=== PATIENT | male | born 1965 | race Hispanic/Latino ===

== ENCOUNTER 2018-10-28 15:57 | Inpatient (IN) | payer OTHER ==
[2018-10-28] MEDS ORDERED: HumuLIN R IV ONE (16:36)
--- NOTE | 2018-10-28 16:46 | Emergency Department Report ---
ED Neuro Deficit HPI - General Chief Complaint: Dyspnea/Respdistress Stated Complaint: DONNIE/HEADACHE Time Seen by Provider: 10/28/18 16:18 Source: patient, EMS Mode of arrival: Stretcher Limitations: No Limitations - History of Present Illness Initial Comments: 53-year-old male with a past medical history of diabetes (on insulin and pills) and previous hypertension (off meds 2 years), hypothyroidism (currently on Synthroid) presents to the hospital with complaints of stroke symptoms since last night. Patient is unsure what time since it started. Developed numbness to his bilateral upper and lower lips, numbness and weakness to right arm and leg as well as slurred speech. Symptoms have been constant and worsened today. He also has had a constant global sharp 9/10 headache since last night. Headache aggravated by light. Mild nausea without vomiting or blurred vision. He denies smoking history, drugs, or alcohol use. He is intermittently compliant with his diabetes medication because he recently lost his job and is trying to make the medication last longer. He does not take an aspirin a day. He complains of some mild intermittent wheezing and shortness of breath without a history of reactive airway disease. - Related Data Home Medications: Previous Rx's Medication Instructions Recorded Last Taken Type Albuterol Sulfate [Ventolin HFA] 2 puff IH Q4H PRN #1 hfa.aer.ad 04/01/14 U nknown Rx Azithromycin [Zithromax Z-DHARMESH] 250 mg PO DAILY #1 pkg 04/01/14 Unknown Rx Promethazine /Codeine 5 ml PO Q6H PRN #150 udc 04/01/14 Unknown Rx [Phenergan/Codeine 6.25-10 mg/5 ml] Allergies/Adverse Reactions: Allergies Allergy/AdvReac Type Severity Reaction Status Date / Time No Known Allergies Allergy Verified 04/01/14 09:04 ED Review of Systems ROS: Stated complaint: DONNIE/HEADACHE Other details as noted in HPI Comment: All other systems reviewed and negative ED Past Medical Hx - Past Medical History Previous Medical History?: Yes Hx Hypertension: Yes Hx Diabetes: Yes Hx Psychiatric Treatment: Yes (anxiety) Additional medical history: Hypothyroidism - Surgical History Past Surgical History?: No - Social History Smoking Status: Never Smoker Substance Use Type: None - Medications Home Medications: Home Medications Medication Instructions Recorded Confirmed Last Taken Type Albuterol Sulfate [Ventolin HFA] 2 puff IH Q4H PRN #1 hfa.aer.ad 04/01/14 Unknown Rx Azithromycin [Zithromax Z-DHARMESH] 250 mg PO DAILY #1 pkg 04/01/14 Unknown Rx Promethazine /Codeine 5 ml PO Q6H PRN #150 udc 04/01/14 Unknown Rx [Phenergan/Codeine 6.25-10 mg/5 ml] ED Neuro Physical Exam - General Limitations: No Limitations Suspected Stroke: Yes - NIHSS Assessment Interval: Baseline 1a. Level of Consciousness: alert/keenly responsive 1b. LOC Questions: answers both correctly 1c. LOC Commands: performs tasks correctly 2. Best Gaze: normal 3. Visual: no visual loss 4. Facial Palsy: normal symmetrical movement 5b. Motor Arm Right: drift 5a. Motor Arm Left: no drift 6a. Motor Leg Left: no drift 6b. Motor Leg Right: drift 7. Limb Ataxia: absent 8. Sensory: mild/moderate sensory loss 9. Best Language: no aphasia 10. Dysarthria: mild/moderate dysarthria 11. Extinction/Inattention: no abnormality Total Score: 4 Stroke Severity: Minor Stroke - Other Other exam information: General: No limitations, patient is alert in no acute distress Head exam: Atraumatic, normocephalic Eyes exam: Normal appearance, pupils equal reactive to light, extraocular movements intact ENT: Moist mucous membrane, normal oropharynx Neck exam: Normal inspection, full range of motion, no meningismus nontender Respiratory exam: Clear to auscultation bilateral, no wheezes, rales, crackles Cardiovascular: Normal rate and rhythm, normal heart sounds Abdomen: Soft, nondistended, and nontender, with normal bowel sounds, no rebound, or guarding Extremity: Full range of motion normal inspection no deformity Back: Normal Inspection, full range of motion, no tenderness Neurologic: Alert, oriented x3, seen in a stroke scale Psychiatric: normal affect, normal mood Skin: Warm, dry, intact ED Course Vital Signs 10/28/18 10/28/18 10/28/18 16:09 16:14 17:23 Temperature 97.8 F Pulse Rate 92 H 95 H Respiratory 17 17 13 Rate Blood Pressure 146/106 Blood Pressure 146/106 142/102 [Left] O2 Sat by Pulse 97 97 100 Oximetry - Lab Data Result diagrams: 10/28/18 16:34 06/09/19 16:34 Lab Results 10/28/18 10/28/18 10/28/18 Range/Units 16:33 16:34 16:34 WBC 9.7 (4.5-11.0) K/mm3 RBC 5.89 H (3.65-5.03) M/mm3 Hgb 14.3 (11.8-15.2) gm/dl Hct 44.3 (35.5-45.6) % MCV 75 L (84-94) fl MCH 24 L (28-32) pg MCHC 32 (32-34) % RDW 16.8 H (13.2-15.2) % Plt Count 187 (140-440) K/mm3 Lymph % (Auto) 16.5 (13.4-35.0) % [place] % (Auto) 6.4 (0.0-7.3) % Eos % (Auto) 2.2 (0.0-4.3) % Baso % (Auto) 0.8 (0.0-1.8) % Lymph # 1.6 (1.2-5.4) K/mm3 [place] # 0.6 (0.0-0.8) K/mm3 Eos # 0.2 (0.0-0.4) K/mm3 Baso # 0.1 (0.0-0.1) K/mm3 Seg Neutrophils % 74.1 H (40.0-70.0) % Seg Neutrophils # 7.2 (1.8-7.7) K/mm3 PT 15.5 H (12.2-14.9) Sec. INR 1.16 H (0.87-1.13) APTT 26.9 (24.2-36.6) Sec. Thrombin Time 16.1 (15.1-19.6) Sec. VBG pH (7.320-7.420) Sodium (137-145) mmol/L Potassium (3.6-5.0) mmol/L Chloride (98-107) mmol/L Carbon Dioxide (22-30) mmol/L Anion Gap mmol/L BUN (9-20) mg/dL Creatinine (0.8-1.5) mg/dL Estimated GFR ml/min BUN/Creatinine Ratio % Glucose (75-100) mg/dL POC Glucose 309 H (70-105) Calcium (8.4-10.2) mg/dL Total Creatine Kinase (55-170) units/L CK-MB (CK-2) (0.0-4.0) ng/mL CK-MB (CK-2) Rel Index (0-4) Troponin T (0.00-0.029) ng/mL TSH (0.270-4.200) mlU/mL Free T4 (0.76-1.46) ng/dL Urine Color (Yellow) Urine Turbidity (Clear) Urine pH (5.0-7.0) Ur Specific [place] (1.003-1.030) Urine Protein (Negative) mg/dL Urine Glucose (UA) (Negative) mg/dL Urine Ketones (Negative) mg/dL Urine Blood (Negative) Urine Nitrite (Negative) Urine Bilirubin (Negative) Urine Urobilinogen (<2.0) mg/dL Ur Leukocyte Esterase (Negative) Urine WBC (Auto) (0.0-6.0) /HPF Urine RBC (Auto) (0.0-6.0) /HPF U Epithel Cells (Auto) (0-13.0) /HPF Urine Mucus /HPF Urine Opiates Screen Urine Methadone Screen Ur Barbiturates Screen Ur Phencyclidine Scrn Ur Amphetamines Screen U Benzodiazepines Scrn Urine Cocaine Screen U Marijuana (THC) Screen Drugs of Abuse Note Plasma/Serum Alcohol (0-0.07) % 10/28/18 10/28/18 10/28/18 Range/Units 16:34 16:34 16:34 WBC (4.5-11.0) K/mm3 RBC (3.65-5.03) M/mm3 Hgb (11.8-15.2) gm/dl Hct (35.5-45.6) % MCV (84-94) fl MCH (28-32) pg MCHC (32-34) % RDW (13.2-15.2) % Plt Count (140-440) K/mm3 Lymph % (Auto) (13.4-35.0) % [place] % (Auto) (0.0-7.3) % Eos % (Auto) (0.0-4.3) % Baso % (Auto) (0.0-1.8) % Lymph # (1.2-5.4) K/mm3 [place] # (0.0-0.8) K/mm3 Eos # (0.0-0.4) K/mm3 Baso # (0.0-0.1) K/mm3 Seg Neutrophils % (40.0-70.0) % Seg Neutrophils # (1.8-7.7) K/mm3 PT (12.2-14.9) Sec. INR (0.87-1.13) APTT (24.2-36.6) Sec. Thrombin Time (15.1-19.6) Sec. VBG pH 7.339 (7.320-7.420) Sodium (137-145) mmol/L Potassium (3.6-5.0) mmol/L Chloride (98-107) mmol/L Carbon Dioxide (22-30) mmol/L Anion Gap mmol/L BUN (9-20) mg/dL Creatinine (0.8-1.5) mg/dL Estimated GFR ml/min BUN/Creatinine Ratio % Glucose (75-100) mg/dL POC Glucose (70-105) Calcium (8.4-10.2) mg/dL Total Creatine Kinase 225 H (55-170) units/L CK-MB (CK-2) 9.0 H (0.0-4.0) ng/mL CK-MB (CK-2) Rel Index 4.0 (0-4) Troponin T < 0.010 (0.00-0.029) ng/mL TSH (0.270-4.200) mlU/mL Free T4 (0.76-1.46) ng/dL Urine Color (Yellow) Urine Turbidity (Clear) Urine pH (5.0-7.0) Ur Specific [place] (1.003-1.030) Urine Protein (Negative) mg/dL Urine Glucose (UA) (Negative) mg/dL Urine Ketones (Negative) mg/dL Urine Blood (Negative) Urine Nitrite (Negative) Urine Bilirubin (Negative) Urine Urobilinogen (<2.0) mg/dL Ur Leukocyte Esterase (Negative) Urine WBC (Auto) (0.0-6.0) /HPF Urine RBC (Auto) (0.0-6.0) /HPF U Epithel Cells (Auto) (0-13.0) /HPF Urine Mucus /HPF Urine Opiates Screen Urine Methadone Screen Ur Barbiturates Screen Ur Phencyclidine Scrn Ur Amphetamines Screen U Benzodiazepines Scrn Urine Cocaine Screen U Marijuana (THC) Screen Drugs of Abuse Note Plasma/Serum Alcohol < 0.01 (0-0.07) % 10/28/18 10/28/18 10/28/18 Range/Units 16:34 16:43 18:20 WBC (4.5-11.0) K/mm3 RBC (3.65-5.03) M/mm3 Hgb (11.8-15.2) gm/dl Hct (35.5-45.6) % MCV (84-94) fl MCH (28-32) pg MCHC (32-34) % RDW (13.2-15.2) % Plt Count (140-440) K/mm3 Lymph % (Auto) (13.4-35.0) % [place] % (Auto) (0.0-7.3) % Eos % (Auto) (0.0-4.3) % Baso % (Auto) (0.0-1.8) % Lymph # (1.2-5.4) K/mm3 [place] # (0.0-0.8) K/mm3 Eos # (0.0-0.4) K/mm3 Baso # (0.0-0.1) K/mm3 Seg Neutrophils % (40.0-70.0) % Seg Neutrophils # (1.8-7.7) K/mm3 PT (12.2-14.9) Sec. INR (0.87-1.13) APTT (24.2-36.6) Sec. Thrombin Time (15.1-19.6) Sec. VBG pH (7.320-7.420) Sodium 130 L (137-145) mmol/L Potassium 4.6 (3.6-5.0) mmol/L Chloride 94.2 L (98-107) mmol/L Carbon Dioxide 21 L (22-30) mmol/L Anion Gap 19 mmol/L BUN 20 (9-20) mg/dL Creatinine 1.3 (0.8-1.5) mg/dL Estimated GFR 58 ml/min BUN/Creatinine Ratio 15 % Glucose 244 H (75-100) mg/dL POC Glucose (70-105) Calcium 8.1 L (8.4-10.2) mg/dL Total Creatine Kinase (55-170) units/L CK-MB (CK-2) (0.0-4.0) ng/mL CK-MB (CK-2) Rel Index (0-4) Troponin T (0.00-0.029) ng/mL TSH 21.710 H (0.270-4.200) mlU/mL Free T4 0.86 (0.76-1.46) ng/dL Urine Color Yellow (Yellow) Urine Turbidity Clear (Clear) Urine pH 6.0 (5.0-7.0) Ur Specific [place] 1.037 H (1.003-1.030) Urine Protein >500 (Negative) mg/dL Urine Glucose (UA) >=500 (Negative) mg/dL Urine Ketones Neg (Negative) mg/dL Urine Blood Sm (Negative) Urine Nitrite Neg (Negative) Urine Bilirubin Neg (Negative) Urine Urobilinogen < 2.0 (<2.0) mg/dL Ur Leukocyte Esterase Neg (Negative) Urine WBC (Auto) 1.0 (0.0-6.0) /HPF Urine RBC (Auto) 1.0 (0.0-6.0) /HPF U Epithel Cells (Auto) 1.0 (0-13.0) /HPF Urine Mucus Few /HPF Urine Opiates Screen Urine Methadone Screen Ur Barbiturates Screen Ur Phencyclidine Scrn Ur Amphetamines Screen U Benzodiazepines Scrn Urine Cocaine Screen U Marijuana (THC) Screen Drugs of Abuse Note Plasma/Serum Alcohol (0-0.07) % 10/28/18 Range/Units 18:20 WBC (4.5-11.0) K/mm3 RBC (3.65-5.03) M/mm3 Hgb (11.8-15.2) gm/dl Hct (35.5-45.6) % MCV (84-94) fl MCH (28-32) pg MCHC (32-34) % RDW (13.2-15.2) % Plt Count (140-440) K/mm3 Lymph % (Auto) (13.4-35.0) % [place] % (Auto) (0.0-7.3) % Eos % (Auto) (0.0-4.3) % Baso % (Auto) (0.0-1.8) % Lymph # (1.2-5.4) K/mm3 [place] # (0.0-0.8) K/mm3 Eos # (0.0-0.4) K/mm3 Baso # (0.0-0.1) K/mm3 Seg Neutrophils % (40.0-70.0) % Seg Neutrophils # (1.8-7.7) K/mm3 PT (12.2-14.9) Sec. INR (0.87-1.13) APTT (24.2-36.6) Sec. Thrombin Time (15.1-19.6) Sec. VBG pH (7.320-7.420) Sodium (137-145) mmol/L Potassium (3.6-5.0) mmol/L Chloride (98-107) mmol/L Carbon Dioxide (22-30) mmol/L Anion Gap mmol/L BUN (9-20) mg/dL Creatinine (0.8-1.5) mg/dL Estimated GFR ml/min BUN/Creatinine Ratio % Glucose (75-100) mg/dL POC Glucose (70-105) Calcium (8.4-10.2) mg/dL Total Creatine Kinase (55-170) units/L CK-MB (CK-2) (0.0-4.0) ng/mL CK-MB (CK-2) Rel Index (0-4) Troponin T (0.00-0.029) ng/mL TSH (0.270-4.200) mlU/mL Free T4 (0.76-1.46) ng/dL Urine Color (Yellow) Urine Turbidity (Clear) Urine pH (5.0-7.0) Ur Specific [place] (1.003-1.030) Urine Protein (Negative) mg/dL Urine Glucose (UA) (Negative) mg/dL Urine Ketones (Negative) mg/dL Urine Blood (Negative) Urine Nitrite (Negative) Urine Bilirubin (Negative) Urine Urobilinogen (<2.0) mg/dL Ur Leukocyte Esterase (Negative) Urine WBC (Auto) (0.0-6.0) /HPF Urine RBC (Auto) (0.0-6.0) /HPF U Epithel Cells (Auto) (0-13.0) /HPF Urine Mucus /HPF Urine Opiates Screen Presumptive negative Urine Methadone Screen Presumptive negative Ur Barbiturates Screen Presumptive negative Ur Phencyclidine Scrn Presumptive negative Ur Amphetamines Screen Presumptive negative U Benzodiazepines Scrn Presumptive negative Urine Cocaine Screen Presumptive negative U Marijuana (THC) Screen Presumptive negative Drugs of Abuse Note Disclamer Plasma/Serum Alcohol (0-0.07) % - EKG Data -: EKG Interpreted by Ut EKG shows normal: sinus rhythm, axis (qrs 32), QRS complexes (qrsd 98), ST-T waves (no stemi) Rate: normal (92) - Radiology Data Radiology results: report reviewed EXAM: XR CHEST 1V AP HISTORY: sob TECHNIQUE: AP chest x-ray dated October 28, 2018 at 4:39 PM. COMPARISON: None available. FINDINGS: There is a shallow inspiratory effort with resultant mild prominence of the bronchopulmonary markings and widening of the cardiac silhouette; while the findings may represent artifactual change from shallow inspiratory effort, minimal noncardiogenic (or cardiogenic) pulmonary congestion, bronchitis, and early bronchopneumonia cannot be excluded in the appropriate clinical setting. Clinical correlation is advised. No focal consolidative lung infiltrate, pleural effusion, or pneumothorax is seen. The heart size and mediastinum are within normal limits. The visualized bony structures are within normal limits. IMPRESSION: 1. Shallow inspiratory effort with resultant mild prominence of the perihilar bronchopulmonary markings and widening of the cardiac silhouette; DDX includes artifactual change from shallow i nspiratory effort, minimal noncardiogenic (or cardiogenic) pulmonary congestion, bronchitis, and early bronchopneumonia in the appropriate clinical setting. Recommend clinical correlation and appropriate follow evaluation as clinically warranted. 2. No focal consolidative lung infiltrate, pleural effusion, or pneumothorax seen. PROCEDURE: CTA of the head and neck TECHNIQUE: CTA of the head and neck obtained with intravenous contrast. Noncontrast head CT also obtained. HISTORY: right sided weakness/numbness, slurred speech COMPARISONS: None FINDINGS: No intracranial hemorrhage or extra-axial fluid collection visualized. No CT evidence for acute cortical infarct. No hydrocephalus visualized. No midline shift visualized. Paranasal sinuses and mastoid air cells are well aerated. Calvarium is intact. The bilateral middle cerebral arteries, anterior cerebral arteries, and posterior cerebral arteries are patent. No evidence for rate limiting stenosis or aneurysm within the intracranial circulation. Bilateral carotid arteries, internal carotid arteries, and vertebral arteries are patent. No evidence for rate limiting stenosis or occlusion within the arteries of the neck. IMPRESSION: No intracranial hemorrhage or extra-axial fluid collection visualized. No CT evidence for acute cortical infarct.. No evidence for rate limiting stenosis or aneurysm within the intracranial circulation. No evidence for rate limiting stenosis or occlusion within the arteries of the neck. - Medical Decision Making morphine for headache asa provided regular insulin for hyperglycemia no signs of large vessel clot on ct pt will be admitted here for MRI and cva workup - Differential Diagnosis complex migraine, ischemic CVA, hemorrhagic CVA, cephalopathy - Thrombolytic Inclusion/Exclusion Thrombolytic Exclusion Criteria: Symptom Onset > 3 Hours Critical Care Time: No Critical care attestation.: If time is entered above; I have spent that time in minutes in the direct care of this critically ill patient, excluding procedure time. ED Disposition Clinical Impression: Diabetes, HTN (hypertension), Slurred speech, Right sided weakness, Headache, Obesity, Hypothyroidism Disposition: OP ADMIT IP TO THIS HOSP Is pt being admited?: Yes Does the pt Need Aspirin: Yes Condition: Stable Time of Disposition: 18:57 (Dr Freire/hosp)
[2018-10-28 16:55] LABS: Basophils # (Auto) 0.1 K/mm3 (0.0-0.1); Basophils % (Auto) 0.8 % (0.0-1.8); Eosinophils # (Auto) 0.2 K/mm3 (0.0-0.4); Eosinophils % (Auto) 2.2 % (0.0-4.3); Hematocrit 44.3 % (35.5-45.6); Hemoglobin 14.3 gm/dl (11.8-15.2); Lymphocytes # (Auto) 1.6 K/mm3 (1.2-5.4); Lymphocytes % (Auto) 16.5 % (13.4-35.0); Mean Corpuscular HGB Conc 32 % (32-34); Mean Corpuscular Volume 75 fl (84-94); Monocytes # (Auto) 0.6 K/mm3 (0.0-0.8); Monocytes % (Auto) 6.4 % (0.0-7.3); Platelet Count 187 K/mm3 (140-440); Red Blood Count 5.89 M/mm3 (3.65-5.03); Red Cell Distribution Width 16.8 % (13.2-15.2)
--- NOTE | 2018-10-28 17:01 | XRay Report ---
EXAM: XR CHEST 1V AP HISTORY: sob TECHNIQUE: AP chest x-ray dated October 28, 2018 at 4:39 PM. COMPARISON: None available. FINDINGS: There is a shallow inspiratory effort with resultant mild prominence of the bronchopulmonary markings and widening of the cardiac silhouette; while the findings may represent artifactual change from sha llow inspiratory effort, minimal noncardiogenic (or cardiogenic) pulmonary congestion, bronchitis, an d early bronchopneumonia cannot be excluded in the appropriate clinical setting. Clinical correlatio n is advised. No focal consolidative lung infiltrate, pleural effusion, or pneumothorax is seen. The heart size and mediastinum are within normal limits. The visualized bony structures are within normal limits. IMPRESSION: 1. Shallow inspiratory effort with resultant mild prominence of the perihilar bronchopulmonary jennifer ngs and widening of the cardiac silhouette; DDX includes artifactual change from shallow inspiratory effort, minimal noncardiogenic (or cardiogenic) pulmonary congestion, bronchitis, and early bronchopn eumonia in the appropriate clinical setting. Recommend clinical correlation and appropriate follow e valuation as clinically warranted. 2. No focal consolidative lung infiltrate, pleural effusion, or pneumothorax seen. This document is electronically signed by Dave Kearney MD., October 28 2018 04:59:19 PM ET
[2018-10-28 17:06] LABS: INR 1.16 (0.87-1.13)
[2018-10-28 17:07] LABS: Partial Thromboplastin Time 26.9 Sec. (24.2-36.6); Thrombin Time 16.1 Sec. (15.1-19.6)
[2018-10-28] MEDS ORDERED: MORPHINE IV ONE ×2 (17:17→18:55)
[2018-10-28] MEDS ORDERED: ZOFRAN IV ONE (17:17)
[2018-10-28] MEDS ORDERED: ZOFRAN ONE (17:19)
[2018-10-28] MEDS ORDERED: MORPHINE ONE (17:20)
[2018-10-28 17:22] LABS: Free T4 (Free Thyroxine) 0.86 ng/dL (0.76-1.46)
[2018-10-28 17:31] LABS: Calcium 8.1 mg/dL (8.4-10.2)
[2018-10-28 18:41] LABS: Bilirubin,Urine NEG (Negative); Blood,Urine SM (Negative); Color,Urine Yellow (Yellow); Mucus,Urine FEW /HPF; Urobilinogen,Urine < 2.0 mg/dL (<2.0)
[2018-10-28 18:44] LABS: Protein,Urine >500 mg/dL (Negative)
--- NOTE | 2018-10-28 18:46 | Cat Scan Report ---
PROCEDURE: CTA of the head and neck TECHNIQUE: CTA of the head and neck obtained with intravenous contrast. Noncontrast head CT also obt ained. HISTORY: right sided weakness/numbness, slurred speech COMPARISONS: None FINDINGS: No intracranial hemorrhage or extra-axial fluid collection visualized. No CT evidence for acute corti alan infarct. No hydrocephalus visualized. No midline shift visualized. Paranasal sinuses and mastoid air cells are well aerated. Calvarium is intact. The bilateral middle cerebral arteries, anterior cerebral arteries, and posterior cerebral arteries a re patent. No evidence for rate limiting stenosis or aneurysm within the intracranial circulation. Bilateral carotid arteries, internal carotid arteries, and vertebral arteries are patent. No evidence for rate limiting stenosis or occlusion within the arteries of the neck. IMPRESSION: No intracranial hemorrhage or extra-axial fluid collection visualized. No CT evidence for acute corti alan infarct.. No evidence for rate limiting stenosis or aneurysm within the intracranial circulation. No evidence for rate limiting stenosis or occlusion within the arteries of the neck. This document is electronically signed by Shamika Carter MD., October 28 2018 06:44:13 PM ET
[2018-10-28 18:48] LABS: Amphetamine Screen,Urine PRESUMPTIVE NEGATIVE; Benzodiazepines Screen,Urine PRESUMPTIVE NEGATIVE; Cannabinoid Screen,Urine PRESUMPTIVE NEGATIVE; Cocaine Screen,Urine PRESUMPTIVE NEGATIVE; Methadone Screen,Urine PRESUMPTIVE NEGATIVE; Opiate Screen,Urine PRESUMPTIVE NEGATIVE
--- NOTE | 2018-10-28 18:49 | Cat Scan Report ---
PROCEDURE: CT ANGIO HEAD TECHNIQUE: Computerized tomographic angiography of the head was performed after the IV injection of iodinated nonionic contrast including image processing. The image data was postprocessed using 2-dim ensional multiplanar reformatted (MPR) and 3-dimensional (MIP and/or volume rendered) techniques. HISTORY: right sided weakness/numbness, slurred speech COMPARISONS: None . FINDINGS: Cerebrum: No evidence of hemorrhage, acute ischemia or mass . Cerebellum: No evidence of hemorrhage, acute ischemia or mass . Subarachnoid spaces and ventricles: Normal . Intracranial vessels: Carotid siphon: Normal . Anterior cerebral: Normal . Middle cerebral: Normal . Posterior cerebral: Normal . Vertebral arteries including basilar: Normal . Aneurysms: None . Dural sinuses: Normal. IMPRESSION: No evidence for rate limiting stenosis or aneurysm within the intracranial circulation. No evidence for rate limiting stenosis or occlusion within the arteries of the neck. This document is electronically signed by Shamika Carter MD., October 28 2018 06:47:48 PM ET
[2018-10-28] MEDS ORDERED: ASPIRIN PO ONE (18:55)
[2018-10-28] MEDS ORDERED: PROVENTIL IH PRN (19:45)
[2018-10-28] MEDS ORDERED: MORPHINE IV PRN (19:45)
[2018-10-28] MEDS ORDERED: SODIUM CHLORIDE FLUSH SYRINGE 10 ML IV PRN (19:45)
[2018-10-28] MEDS ORDERED: D50W (25GM) Syringe IV PRN (19:45)
[2018-10-28] MEDS ORDERED: TYLENOL PO PRN (19:45)
[2018-10-28] MEDS ORDERED: ZOFRAN IV PRN (19:45)
[2018-10-28] MEDS ORDERED: APRESOLINE IV PRN (19:58)
--- NOTE | 2018-10-28 20:16 | History and Physical Report ---
<ERAN WAGGONER - Last Filed: 10/28/18 20:42> History of Present Illness Date of examination: 10/28/18 Date of admission: 10/28/2018 Chief complaint: Right-sided weakness, slurred speech History of present illness: 53-year-old male with history of hypertension controlled without medication, hypothyroidism, DM, anxiety presents [facility] ED with complaints of right-sided weakness and slurred speech. Pt stats he started experiencing tingling around has mild, followed by right sided weakness, right facial droop and slurred speech sometime last night (unable to provide exact time). Patient went over to his neighbor's house for confirmation that he had slurred speech and right-sided facial droop. His neighbors confirm that his speech was not at baseline and his face was asymmetrical. His symptoms progressively worsen throughout the day. He developed a headache . His headache is global, described as sharp and rates 9/10. It is aggravated by light and relieved with medication. Additionally patient states that he's been experiencing intermittent shortness of breath. Admits anxiety, intermittent nausea, wheezing, shortness of breath, global headache with light sensitivity,and intermittent compliance with medications d/t recent unemployment Denies smoking, illicit drug use, cough, fever, hemoptysis, emesis, diarrhea, or gait disturbances Past History Past Medical History: diabetes, hypertension, hypothyroidism, other (anxiety) Past Surgical History: No surgical history Social history: no significant social history Family history: no significant family history Medications and Allergies Allergies Allergy/AdvReac Type Severity Reaction Status Date / Time No Known Allergies Allergy Verified 04/01/14 09:04 Home Medications Medication Instructions Recorded Confirmed Last Taken Type Albuterol Sulfate [Ventolin HFA] 2 puff IH Q4H PRN #1 hfa.aer.[id number] 04/01/14 Unknown Rx Azithromycin [Zithromax Z-DHARMESH] 250 mg PO DAILY #1 pkg 04/01/14 Unknown Rx Promethazine /Codeine 5 ml PO Q6H PRN #150 udc 04/01/14 Unknown Rx [Phenergan/Codeine 6.25-10 mg/5 ml] Active Meds: Active Medications Acetaminophen (Tylenol) 650 mg PO Q4H PRN PRN Reason: Pain, Mild (1-3) Albuterol (Proventil) 2.5 mg IH Q3HRT PRN PRN Reason: Shortness Of Breath Alprazolam (Xanax) 0.5 mg PO Q8H PRN PRN Reason: Anxiety Aspirin (Aspirin) 325 mg PO QDAY [facility] Atorvastatin Calcium (Lipitor) 40 mg PO QHS [facility] Dextrose (D50w (25gm) Syringe) 50 ml IV PRN PRN PRN Reason: Hypoglycemia Docusate Sodium (Colace) 100 mg PO BID [facility] Enoxaparin Sodium (Lovenox) 40 mg SUB-Q QDAY [facility] Hydralazine HCl (Apresoline) 10 mg IV Q4HR PRN PRN Reason: Blood Pressure Hydromorphone HCl (Dilaudid) 0.5 mg IV Q3H PRN PRN Reason: Pain , Severe (7-10) Stop: 10/29/18 23:59 Sodium Chloride (Nacl 0.9% 1000 Ml) 1,000 mls @ 100 mls/hr IV DIRECT JETHRO Insulin Glargine (Lantus) 10 units SUB-Q QHS [facility] Insulin Human Lispro (Humalog) 0 unit SUB-Q ACHS [facility]; Protocol Morphine Sulfate (Morphine) 2 mg IV Q4H PRN PRN Reason: Pain, Moderate (4-6) Stop: 10/29/18 23:59 Ondansetron HCl (Zofran) 4 mg IV Q8H PRN PRN Reason: Nausea And Vomiting Sodium Chloride (Sodium Chloride Flush Syringe 10 Ml) 10 ml INJ PRN PRN PRN Reason: LINE FLUSH Zolpidem Tartrate (Ambien) 5 mg PO QHS PRN PRN Reason: Insomnia Review of Systems All systems: negative (reviewed and no additional remarkable complaints except as noted below) Cardiovascular: shortness of breath Neurological: numbness (right upper extremity), tingling (right upper extremity ), headaches (mild headache), change in speech (slurred speech/swallow within normal) Psychiatric: anxiety Exam - Physical Exam Narrative exam: Physical exam General appearance: Present: No acute distress, obese, middle-age adult male, right facial droop - EENT Eyes: Present: PERRL, EOM intact ENT: hearing intact, normal dentition - Neck Neck: Present: supple, normal ROM - Respiratory Respiratory effort: Non-labored Respiratory: bilateral: diminished (bases) - Cardiovascular Heart rate: 92 (bpm) Rhythm: Sinus rhythm, regular Heart Sounds: Present: S1 & S2. Absent: rub, click - Extremities Extremities: no ischemia, pulses intact, abnormal (decreased sensation to right upper extremity) - Peripheral Assessment Peripheral Pulses: within normal limits - Abdominal General gastrointestinal: Obese, soft, non-tender, normal bowel sounds - Integumentary Integumentary: Present: warm, dry - Musculoskeletal Musculoskeletal: Able to move all extremities, 4/5 strength right upper and lower extremity - Psychiatric Psychiatric: Appropriate for situation, cooperative - Constitutional Vitals: Temp Pulse Resp BP Pulse Ox 98.6 F 93 H 21 142/96 98 10/28/18 19:26 10/28/18 19:26 10/28/18 19:26 10/28/18 19:26 10/28/18 19:26 Results - Labs CBC & Chem 7: 10/28/18 16:34 10/28/18 16:34 Labs: Laboratory Last Values WBC 9.7 K/mm3 (4.5-11.0) 10/28/18 16:34 RBC 5.89 M/mm3 (3.65-5.03) H 10/28/18 16:34 Hgb 14.3 gm/dl (11.8-15.2) 10/28/18 16:34 Hct 44.3 % (35.5-45.6) 10/28/18 16:34 MCV 75 fl (84-94) L 10/28/18 16:34 MCH 24 pg (28-32) L 10/28/18 16:34 MCHC 32 % (32-34) 10/28/18 16:34 RDW 16.8 % (13.2-15.2) H 10/28/18 16:34 Plt Count 187 K/mm3 (140-440) 10/28/18 16:34 Lymph % (Auto) 16.5 % (13.4-35.0) 10/28/18 16:34 [place] % (Auto) 6.4 % (0.0-7.3) 10/28/18 16:34 Eos % (Auto) 2.2 % (0.0-4.3) 10/28/18 16:34 Baso % (Auto) 0.8 % (0.0-1.8) 10/28/18 16:34 Lymph # 1.6 K/mm3 (1.2-5.4) 10/28/18 16:34 [place] # 0.6 K/mm3 (0.0-0.8) 10/28/18 16:34 Eos # 0.2 K/mm3 (0.0-0.4) 10/28/18 16:34 Baso # 0.1 K/mm3 (0.0-0.1) 10/28/18 16:34 Seg Neutrophils % 74.1 % (40.0-70.0) H 10/28/18 16:34 Seg Neutrophils # 7.2 K/mm3 (1.8-7.7) 10/28/18 16:34 PT 15.5 Sec. (12.2-14.9) H 10/28/18 16:34 INR 1.16 (0.87-1.13) H 10/28/18 16:34 APTT 26.9 Sec. (24.2-36.6) 10/28/18 16:34 16.1 Sec. (15.1-19.6) 10/28/18 16:34 VBG pH 7.339 (7.320-7.420) 10/28/18 16:34 Sodium 130 mmol/L (137-145) L 10/28/18 16:34 Potassium 4.6 mmol/L (3.6-5.0) 10/28/18 16:34 Chloride 94.2 mmol/L (98-107) L 10/28/18 16:34 Carbon Dioxide 21 mmol/L (22-30) L 10/28/18 16:34 19 mmol/L 10/28/18 16:34 BUN 20 mg/dL (9-20) 10/28/18 16:34 1.3 mg/dL (0.8-1.5) 10/28/18 16:34 Estimated GFR 58 ml/min 10/28/18 16:34 15 % 10/28/18 16:34 Glucose 244 mg/dL (75-100) H 10/28/18 16:34 POC Glucose 309 (70-105) H 10/28/18 16:33 Calcium 8.1 mg/dL (8.4-10.2) L 10/28/18 16:34 225 units/L (55-170) H 10/28/18 16:34 CK-MB (CK-2) 9.0 ng/mL (0.0-4.0) H 10/28/18 16:34 CK-MB (CK-2) Rel Index 4.0 (0-4) 10/28/18 16:34 < 0.010 ng/mL (0.00-0.029) 10/28/18 16:34 TSH 21.710 mlU/mL (0.270-4.200) H 10/28/18 16:43 Free T4 0.86 ng/dL (0.76-1.46) 10/28/18 16:43 Yellow (Yellow) 10/28/18 18:20 Clear (Clear) 10/28/18 18:20 6.0 (5.0-7.0) 10/28/18 18:20 Ur Specific [place] 1.037 (1.003-1.030) H 10/28/18 18:20 >500 mg/dL (Negative) 10/28/18 18:20 >=500 mg/dL (Negative) 10/28/18 18:20 Neg mg/dL (Negative) 10/28/18 18:20 Sm (Negative) 10/28/18 18:20 Neg (Negative) 10/28/18 18:20 Neg (Negative) 10/28/18 18:20 < 2.0 mg/dL (<2.0) 10/28/18 18:20 Ur Leukocyte Esterase Neg (Negative) 10/28/18 18:20 1.0 /HPF (0.0-6.0) 10/28/18 18:20 1.0 /HPF (0.0-6.0) 10/28/18 18:20 U Epithel Cells (Auto) 1.0 /HPF (0-13.0) 10/28/18 18:20 Few /HPF 10/28/18 18:20 Presumptive negative 10/28/18 18:20 Presumptive negative 10/28/18 18:20 Ur Barbiturates Screen Presumptive negative 10/28/18 18:20 Ur Phencyclidine Scrn Presumptive negative 10/28/18 18:20 Ur Amphetamines Screen Presumptive negative 10/28/18 18:20 U Benzodiazepines Scrn Presumptive negative 10/28/18 18:20 Presumptive negative 10/28/18 18:20 U Marijuana (THC) Screen Presumptive negative 10/28/18 18:20 Disclamer 10/28/18 18:20 Plasma/Serum Alcohol < 0.01 % (0-0.07) 10/28/18 16:34 - Imaging and Cardiology EKG: image reviewed (sinus rhythm 92 bpm) Imaging and Cardiology: CTA Head: No evidence of hemorrhage, acute ischemia or mass CTA Neck: No evidence of a rate limiting stenosis or occlusion within the arteries of the neck Assessment and Plan Assessment and plan: 53-year-old male with history of hypertension controlled without medication, hypothyroidism, DM, anxiety presents [facility] ED with complaints of global headache, right-sided weakness and slurred speech. On examination patient is noted to have slight right facial droop. Decreased sensation to right upper extremity. Muscle strength 4/5 on right upper extremity. CT a head unrevealing for hem orrhage, acute ischemia or mass. Patient states his headache is now resolved. Troponin negative 1. Mild hyponatremia with sodium of 130. Will admit to Telemetry for further evaluation. Stoke protocol initiated. Hyponatremia R/O CVA Suspected TIA Hypertension DM-uncontrolled Hypo-thyroidism Anxiety Suspicion of asthma vs obesity hypoventilation syndrome Obesity Plan: Continue supportive care Initiate stroke protocol Neuro checks per stroke protocol Monitor BP Patient is not presently on antihypertensive medication; his BP has been controlled with diet and exercise for the past 2 years IV hydralazine when necessary POC BG Monitoring HgbA1C pending SSI and scheduled Lantus MRI/MRA Head pending Neurology consulted PT/OT eval pending Albuterol when necessary Xanax when necessary ASA 81 mg, Lipitor 40mg daily at bedtime Repeat troponin pending Slowly correct sodium start NS 100ml/hr Monitor electrolytes and replete as needed DVT PPX on Lovenox Medication reconciliation pending Advance Directives: Yes VTE prophylaxis?: Chemical Plan of care discussed with patient/family: Yes <EMERSON MARIE S - Last Filed: 10/29/18 16:40> History of Present Illness Date of admission: 10/28/18 19:45 Medications and Allergies Active Meds: Active Medications Acetaminophen (Tylenol) 650 mg PO Q4H PRN PRN Reason: Pain, Mild (1-3) Albuterol (Proventil) 2.5 mg IH Q3HRT PRN PRN Reason: Shortness Of Breath Alprazolam (Xanax) 0.5 mg PO Q8H PRN PRN Reason: Anxiety Last Admin: 10/29/18 10:11 Dose: 0.5 mg Documented by: Aspirin (Aspirin) 325 mg PO QDAY [facility] Last Admin: 10/29/18 09:27 Dose: 325 mg Documented by: Atorvastatin Calcium (Lipitor) 40 mg PO QHS [facility] Last Admin: 10/28/18 23:04 Dose: 40 mg Documented by: Dextrose (D50w (25gm) Syringe) 50 ml IV PRN PRN PRN Reason: Hypoglycemia Docusate Sodium (Colace) 100 mg PO BID [facility] Last Admin: 10/29/18 09:27 Dose: 100 mg Documented by: Enoxaparin Sodium (Lovenox) 40 mg SUB-Q QDAY [facility] Last Admin: 10/29/18 09:27 Dose: 40 mg Documented by: Hydralazine HCl (Apresoline) 10 mg IV Q4HR PRN PRN Reason: Blood Pressure Hydromorphone HCl (Dilaudid) 0.5 mg IV Q3H PRN PRN Reason: Pain , Severe (7-10) Stop: 10/29/18 23:59 Last Admin: 10/29/18 13:30 Dose: 0.5 mg Documented by: Sodium Chloride (Nacl 0.9% 1000 Ml) 1,000 mls @ 100 mls/hr IV DIRECT [facility] Last Admin: 10/29/18 10:12 Dose: 100 mls/hr Documented by: [facility]) [facility] Last Admin: 10/28/18 23:45 Dose: Not Given Documented by: Insulin Human Lispro (Humalog) 0 unit SUB-Q [facility]; Protocol Last Admin: 10/29/18 12:37 Dose: Not Given Documented by: Morphine Sulfate (Morphine) 2 mg IV Q4H PRN PRN Reason: Pain, Moderate (4-6) Stop: 10/29/18 23:59 Ondansetron HCl (Zofran) 4 mg IV Q8H PRN PRN Reason: Nausea And Vomiting Pantoprazole Sodium (Protonix) 40 mg PO DAILY [facility] Last Admin: 10/29/18 09:27 Dose: 40 mg Documented by: Sodium Chloride (Sodium Chloride Flush Syringe 10 Ml) 10 ml IV PRN PRN PRN Reason: LINE FLUSH Zolpidem Tartrate (Ambien) 5 mg PO QHS PRN PRN Reason: Insomnia Last Admin: 10/28/18 23:04 Dose: 5 mg Documented by: Exam - Constitutional Vitals: Temp Pulse Resp BP Pulse Ox 97.5 F L 86 18 131/97 97 10/29/18 07:50 10/29/18 04:30 10/29/18 07:50 10/29/18 07:50 10/29/18 10:00 Results - Labs CBC & Chem 7: 10/28/18 16:34 10/28/18 16:34 Labs: Laboratory Last Values WBC 9.7 K/mm3 (4.5-11.0) 10/28/18 16:34 RBC 5.89 M/mm3 (3.65-5.03) H 10/28/18 16:34 Hgb 14.3 gm/dl (11.8-15.2) 10/28/18 16:34 Hct 44.3 % (35.5-45.6) 10/28/18 16:34 MCV 75 fl (84-94) L 10/28/18 16:34 MCH 24 pg (28-32) L 10/28/18 16:34 MCHC 32 % (32-34) 10/28/18 16:34 RDW 16.8 % (13.2-15.2) H 10/28/18 16:34 Plt Count 187 K/mm3 (140-440) 10/28/18 16:34 Lymph % (Auto) 16.5 % (13.4-35.0) 10/28/18 16:34 [place] % (Auto) 6.4 % (0.0-7.3) 10/28/18 16:34 Eos % (Auto) 2.2 % (0.0-4.3) 10/28/18 16:34 Baso % (Auto) 0.8 % (0.0-1.8) 10/28/18 16:34 Lymph # 1.6 K/mm3 (1.2-5.4) 10/28/18 16:34 [place] # 0.6 K/mm3 (0.0-0.8) 10/28/18 16:34 Eos # 0.2 K/mm3 (0.0-0.4) 10/28/18 16:34 Baso # 0.1 K/mm3 (0.0-0.1) 10/28/18 16:34 Seg Neutrophils % 74.1 % (40.0-70.0) H 10/28/18 16:34 Seg Neutrophils # 7.2 K/mm3 (1.8-7.7) 10/28/18 16:34 PT 15.5 Sec. (12.2-14.9) H 10/28/18 16:34 INR 1.16 (0.87-1.13) H 10/28/18 16:34 APTT 26.9 Sec. (24.2-36.6) 10/28/18 16:34 16.1 Sec. (15.1-19.6) 10/28/18 16:34 VBG pH 7.339 (7.320-7.420) 10/28/18 16:34 Sodium 130 mmol/L (137-145) L 10/28/18 16:34 Potassium 4.6 mmol/L (3.6-5.0) 10/28/18 16:34 Chloride 94.2 mmol/L (98-107) L 10/28/18 16:34 Carbon Dioxide 21 mmol/L (22-30) L 10/28/18 16:34 19 mmol/L 10/28/18 16:34 BUN 20 mg/dL (9-20) 10/28/18 16:34 1.3 mg/dL (0.8-1.5) 10/28/18 16:34 Estimated GFR 58 ml/min 10/28/18 16:34 15 % 10/28/18 16:34 Glucose 244 mg/dL (75-100) H 10/28/18 16:34 POC Glucose 124 (70-105) H 10/28/18 23:55 11.7 % (4-6) H 10/28/18 16:34 Calcium 8.1 mg/dL (8.4-10.2) L 10/28/18 16:34 225 units/L (55-170) H 10/28/18 16:34 CK-MB (CK-2) 9.0 ng/mL (0.0-4.0) H 10/28/18 16:34 CK-MB (CK-2) Rel Index 4.0 (0-4) 10/28/18 16:34 0.017 ng/mL (0.00-0.029) 10/28/18 22:31 Triglycerides 125 mg/dL (2-149) 10/29/18 05:46 Cholesterol 152 mg/dL (50-199) 10/29/18 05:46 108 mg/dL (50-130) 10/29/18 05:46 35 mg/dL (40-59) L 10/29/18 05:46 4.34 % 10/29/18 05:46 TSH 21.710 mlU/mL (0.270-4.200) H 10/28/18 16:43 Free T4 0.86 ng/dL (0.76-1.46) 10/28/18 16:43 Yellow (Yellow) 10/28/18 18:20 Clear (Clear) 10/28/18 18:20 6.0 (5.0-7.0) 10/28/18 18:20 Ur Specific [place] 1.037 (1.003-1.030) H 10/28/18 18:20 >500 mg/dL (Negative) 10/28/18 18:20 >=500 mg/dL (Negative) 10/28/18 18:20 Neg mg/dL (Negative) 10/28/18 18:20 Sm (Negative) 10/28/18 18:20 Neg (Negative) 10/28/18 18:20 Neg (Negative) 10/28/18 18:20 < 2.0 mg/dL (<2.0) 10/28/18 18:20 Ur Leukocyte Esterase Neg (Negative) 10/28/18 18:20 1.0 /HPF (0.0-6.0) 10/28/18 18:20 1.0 /HPF (0.0-6.0) 10/28/18 18:20 U Epithel Cells (Auto) 1.0 /HPF (0-13.0) 10/28/18 18:20 Few /HPF 10/28/18 18:20 Presumptive negative 10/28/18 18:20 Presumptive negative 10/28/18 18:20 Ur Barbiturates Screen Presumptive negative 10/28/18 18:20 Ur Phencyclidine Scrn Presumptive negative 10/28/18 18:20 Ur Amphetamines Screen Presumptive negative 10/28/18 18:20 U Benzodiazepines Scrn Presumptive negative 10/28/18 18:20 Presumptive negative 10/28/18 18:20 U Marijuana (THC) Screen Presumptive negative 10/28/18 18:20 Disclamer 10/28/18 18:20 Plasma/Serum Alcohol < 0.01 % (0-0.07) 10/28/18 16:34
[2018-10-28] MEDS: LOVENOX SUB-Q SCH (20:18)
[2018-10-28] MEDS: XANAX PO PRN (20:20)
[2018-10-28] MEDS: DILAUDID IV PRN (23:00)
[2018-10-28] MEDS: PROTONIX PO SCH (23:04)
[2018-10-28] MEDS: AMBIEN PO PRN (23:04)
[2018-10-28] MEDS: COLACE PO SCH (23:05)
[2018-10-28] MEDS: NACL 0.9% 1000 ML 1,000 ML IV SCH (23:09)
[2018-10-28] MEDS: HumaLOG SUB-Q SCH (23:45)
[2018-10-28] MEDS: LANTUS SUB-Q SCH (23:45)
[2018-10-29] MEDS: DILAUDID IV PRN ×5 (03:17→22:43)
[2018-10-29 06:35] LABS: Chol/HDL Ratio 4.34 %
[2018-10-29] MEDS: HumaLOG SUB-Q SCH ×4 (08:32→22:06)
[2018-10-29] MEDS: PROTONIX PO SCH (09:27)
[2018-10-29] MEDS: LOVENOX SUB-Q SCH (09:27)
[2018-10-29] MEDS: ASPIRIN PO SCH (09:27)
[2018-10-29] MEDS: COLACE PO SCH ×2 (09:27→21:58)
[2018-10-29] MEDS: XANAX PO PRN ×2 (10:11→18:11)
[2018-10-29] MEDS: NACL 0.9% 1000 ML 1,000 ML IV SCH ×2 (10:12→22:10)
--- NOTE | 2018-10-29 11:13 | Progress Note ---
Assessment and Plan Assessment and plan: 53-year-old male with history of hypertension controlled without medication, hypothyroidism, DM, anxiety presents [facility] with complaints of global headache, right-sided weakness and slurred speech. On examination patient is noted to have slight right facial droop. Decreased sensation to right upper extremity. Muscle strength 4/5 on right upper extremity. CT a head unrevealing for hemorrhage, acute ischemia or mass. ,neuro workup in progress,neurology consulted,Symptoms significantly improved. --Acute CVA : with rt sided weakness present on admission; Not a candidate for TPA,not in the window of TPA aspirin and statin, Neuro workup in progress, neurology consult PT,OT rehab --Type2 DM;moderate control ACCU checks,SSC.ADA diet,Insulin,check A1c Diabetic education --Hypothyroidism: synthroid, May need to see endocrine upon discharge --Hyponatremia: closely monitoer electrolytes replacement therapy if needed --Hypertension: continue current antihypertensives, permissive hypertension per stroke protocol --Morbid obesity: BMI 43 advised weight reduction when medically stable --Possible WHITLEY : cpap at night if needed patient needs out pt sleep study to r/o WHITLEY upon discharge --DVT prophylaxis : Lovenox Monitor closely and adjust the management as needed f/u neuro evaluation and recomendations Plan of care reviewed with the patient and his nurse Disposition: follow neuro w/u ,possible discharge in 1-2 days pending clinical status History Interval history: Patient seen and examined,medical records reviewed Patient was admitted with stroke like symptoms Neuro w/u in progress. Patient feels better,facial weakness improved Vital signs noted Hospitalist Physical - Constitutional Vitals: Temp Pulse Resp BP Pulse Ox 97.5 F L 86 18 131/97 90 10/29/18 07:50 10/29/18 04:30 10/29/18 07:50 10/29/18 07:50 10/29/18 04:30 General appearance: Present: no acute distress, well-nourished, obese - EENT Eyes: Present: PERRL, EOM intact ENT: hearing intact - Neck Neck: Present: supple, normal ROM - Respiratory Respiratory effort: normal Respiratory: negative: rales, rhonchi, wheezing - Cardiovascular Rhythm: regular Heart Sounds: Present: S1 & S2 - Extremities Extremities: no ischemia, No edema - Abdominal General gastrointestinal: soft, non-tender, non-distended, normal bowel sounds - Integumentary Integumentary: Present: clear, warm - Psychiatric Psychiatric: appropriate mood/affect, cooperative - Neurologic Neurologic: CNII-XII intact, moves all extremities, other (very mild weakness Rt UE 4-5/5, speech clear) Results - Labs CBC & Chem 7: 10/28/18 16:34 10/28/18 16:34 Labs: Laboratory Last Values WBC 9.7 K/mm3 (4.5-11.0) 10/28/18 16:34 RBC 5.89 M/mm3 (3.65-5.03) H 10/28/18 16:34 Hgb 14.3 gm/dl (11.8-15.2) 10/28/18 16:34 Hct 44.3 % (35.5-45.6) 10/28/18 16:34 MCV 75 fl (84-94) L 10/28/18 16:34 MCH 24 pg (28-32) L 10/28/18 16:34 MCHC 32 % (32-34) 10/28/18 16:34 RDW 16.8 % (13.2-15.2) H 10/28/18 16:34 Plt Count 187 K/mm3 (140-440) 10/28/18 16:34 Lymph % (Auto) 16.5 % (13.4-35.0) 10/28/18 16:34 [place] % (Auto) 6.4 % (0.0-7.3) 10/28/18 16:34 Eos % (Auto) 2.2 % (0.0-4.3) 10/28/18 16:34 Baso % (Auto) 0.8 % (0.0-1.8) 10/28/18 16:34 Lymph # 1.6 K/mm3 (1.2-5.4) 10/28/18 16:34 [place] # 0.6 K/mm3 (0.0-0.8) 10/28/18 16:34 Eos # 0.2 K/mm3 (0.0-0.4) 10/28/18 16:34 Baso # 0.1 K/mm3 (0.0-0.1) 10/28/18 16:34 Seg Neutrophils % 74.1 % (40.0-70.0) H 10/28/18 16:34 Seg Neutrophils # 7.2 K/mm3 (1.8-7.7) 10/28/18 16:34 PT 15.5 Sec. (12.2-14.9) H 10/28/18 16:34 INR 1.16 (0.87-1.13) H 10/28/18 16:34 APTT 26.9 Sec. (24.2-36.6) 10/28/18 16:34 16.1 Sec. (15.1-19.6) 10/28/18 16:34 VBG pH 7.339 (7.320-7.420) 10/28/18 16:34 Sodium 130 mmol/L (137-145) L 10/28/18 16:34 Potassium 4.6 mmol/L (3.6-5.0) 10/28/18 16:34 Chloride 94.2 mmol/L (98-107) L 10/28/18 16:34 Carbon Dioxide 21 mmol/L (22-30) L 10/28/18 16:34 19 mmol/L 10/28/18 16:34 BUN 20 mg/dL (9-20) 10/28/18 16:34 1.3 mg/dL (0.8-1.5) 10/28/18 16:34 Estimated GFR 58 ml/min 10/28/18 16:34 15 % 10/28/18 16:34 Glucose 244 mg/dL (75-100) H 10/28/18 16:34 POC Glucose 124 (70-105) H 10/28/18 23:55 11.7 % (4-6) H 10/28/18 16:34 Calcium 8.1 mg/dL (8.4-10.2) L 10/28/18 16:34 225 units/L (55-170) H 10/28/18 16:34 CK-MB (CK-2) 9.0 ng/mL (0.0-4.0) H 10/28/18 16:34 CK-MB (CK-2) Rel Index 4.0 (0-4) 10/28/18 16:34 0.017 ng/mL (0.00-0.029) 10/28/18 22:31 Triglycerides 125 mg/dL (2-149) 10/29/18 05:46 Cholesterol 152 mg/dL (50-199) 10/29/18 05:46 108 mg/dL (50-130) 10/29/18 05:46 35 mg/dL (40-59) L 10/29/18 05:46 4.34 % 10/29/18 05:46 TSH 21.710 mlU/mL (0.270-4.200) H 10/28/18 16:43 Free T4 0.86 ng/dL (0.76-1.46) 10/28/18 16:43 Yellow (Yellow) 10/28/18 18:20 Clear (Clear) 10/28/18 18:20 6.0 (5.0-7.0) 10/28/18 18:20 Ur Specific [place] 1.037 (1.003-1.030) H 10/28/18 18:20 >500 mg/dL (Negative) 10/28/18 18:20 >=500 mg/dL (Negative) 10/28/18 18:20 Neg mg/dL (Negative) 10/28/18 18:20 Sm (Negative) 10/28/18 18:20 Neg (Negative) 10/28/18 18:20 Neg (Negative) 10/28/18 18:20 < 2.0 mg/dL (<2.0) 10/28/18 18:20 Ur Leukocyte Esterase Neg (Negative) 10/28/18 18:20 1.0 /HPF (0.0-6.0) 10/28/18 18:20 1.0 /HPF (0.0-6.0) 10/28/18 18:20 U Epithel Cells (Auto) 1.0 /HPF (0-13.0) 10/28/18 18:20 Few /HPF 10/28/18 18:20 Presumptive negative 10/28/18 18:20 Presumptive negative 10/28/18 18:20 Ur Barbiturates Screen Presumptive negative 10/28/18 18:20 Ur Phencyclidine Scrn Presumptive negative 10/28/18 18:20 Ur Amphetamines Screen Presumptive negative 10/28/18 18:20 U Benzodiazepines Scrn Presumptive negative 10/28/18 18:20 Presumptive negative 10/28/18 18:20 U Marijuana (THC) Screen Presumptive negative 10/28/18 18:20 Disclamer 10/28/18 18:20 Plasma/Serum Alcohol < 0.01 % (0-0.07) 10/28/18 16:34 Active Medications - Current Medications Current Medications: Generic Name Dose Route Start Last Admin Trade Name Freq PRN Reason Stop Dose Admin Acetaminophen 650 mg 10/28/18 19:45 Tylenol PO Q4H PRN Pain, Mild (1-3) Albuterol 2.5 mg 10/28/18 19:45 Proventil IH Q3HRT PRN Shortness Of Breath Alprazolam 0.5 mg 10/28/18 19:50 10/29/18 10:11 Xanax PO 0.5 mg Q8H PRN Administration Anxiety Aspirin 325 mg 10/29/18 10:00 10/29/18 09:27 Aspirin PO 325 mg QDAY JETHRO Administration Atorvastatin Calcium 40 mg 10/28/18 22:00 10/28/18 23:04 Lipitor PO 40 mg QHS JETHRO Administration Dextrose 50 ml 10/28/18 19:45 D50w (25gm) Syringe IV PRN PRN Hypoglycemia Docusate Sodium 100 mg 10/28/18 22:00 10/29/18 09:27 Colace PO 100 mg BID JETHRO Administration Enoxaparin Sodium 40 mg 10/28/18 20:00 10/29/18 09:27 Lovenox SUB-Q 40 mg QDAY JETHRO Administration Hydralazine HCl 10 mg 10/28/18 19:58 Apresoline IV Q4HR PRN Blood Pressure Hydromorphone HCl 0.5 mg 10/28/18 19:49 10/29/18 09:29 Dilaudid IV 10/29/18 23:59 0.5 mg Q3H PRN Administration Pain , Severe (7-10) Sodium Chloride 1,000 mls @ 100 mls/hr 10/28/18 20:00 10/29/18 10:12 Nacl 0.9% 1000 Ml IV 100 mls/hr DIRECT JETHRO Administration Insulin Glargine 10 units 10/28/18 22:00 10/28/18 23:45 Lantus SUB-Q Not Given QHS [facility] Insulin Human Lispro 0 unit 10/28/18 22:00 10/28/18 23:45 Humalog SUB-Q Not Given ACHS [facility] Protocol Morphine Sulfate 2 mg 10/28/18 19:45 Morphine IV 10/29/18 23:59 Q4H PRN Pain, Moderate (4-6) Ondansetron HCl 4 mg 10/28/18 19:45 Zofran IV Q8H PRN Nausea And Vomiting Pantoprazole Sodium 40 mg 10/28/18 22:00 10/29/18 09:27 Protonix PO 40 mg DAILY JETHRO Administration Sodium Chloride 10 ml 10/28/18 19:45 Sodium Chloride Flush Syringe 10 Ml IV PRN PRN LINE FLUSH Zolpidem Tartrate 5 mg 10/28/18 19:49 10/28/18 23:04 Ambien PO 5 mg QHS PRN Administration Insomnia
--- NOTE | 2018-10-29 18:16 | Consultation ---
Past History Past Medical History: diabetes, hypertension, hypothyroidism, other (anxiety) Past Surgical History: No surgical history Social history: no significant social history Family history: no significant family history Medications and Allergies Allergies Allergy/AdvReac Type Severity Reaction Status Date / Time No Known Allergies Allergy Verified 04/01/14 09:04 Home Medications Medication Instructions Recorded Confirmed Last Taken Type Albuterol Sulfate [Ventolin HFA] 2 puff IH Q4H PRN #1 hfa.aer.ad 04/01/14 Unknown Rx Azithromycin [Zithromax Z-DHARMESH] 250 mg PO DAILY #1 pkg 04/01/14 Unknown Rx Promethazine /Codeine 5 ml PO Q6H PRN #150 udc 04/01/14 Unknown Rx [Phenergan/Codeine 6.25-10 mg/5 ml] Active Meds: Active Medications Acetaminophen (Tylenol) 650 mg PO Q4H PRN PRN Reason: Pain, Mild (1-3) Albuterol (Proventil) 2.5 mg IH Q3HRT PRN PRN Reason: Shortness Of Breath Alprazolam (Xanax) 0.5 mg PO Q8H PRN PRN Reason: Anxiety Last Admin: 10/29/18 10:11 Dose: 0.5 mg Documented by: Aspirin (Aspirin) 325 mg PO QDAY [facility] Last Admin: 10/29/18 09:27 Dose: 325 mg Documented by: Atorvastatin Calcium (Lipitor) 40 mg PO QHS [facility] Last Admin: 10/28/18 23:04 Dose: 40 mg Documented by: Dextrose (D50w (25gm) Syringe) 50 ml IV PRN PRN PRN Reason: Hypoglycemia Docusate Sodium (Colace) 100 mg PO BID [facility] Last Admin: 10/29/18 09:27 Dose: 100 mg Documented by: Enoxaparin Sodium (Lovenox) 40 mg SUB-Q QDAY [facility] Last Admin: 10/29/18 09:27 Dose: 40 mg Documented by: Hydralazine HCl (Apresoline) 10 mg IV Q4HR PRN PRN Reason: Blood Pressure Hydromorphone HCl (Dilaudid) 0.5 mg IV Q3H PRN PRN Reason: Pain , Severe (7-10) Stop: 10/29/18 23:59 Last Admin: 10/29/18 13:30 Dose: 0.5 mg Documented by: Sodium Chloride (Nacl 0.9% 1000 Ml) 1,000 mls @ 100 mls/hr IV DIRECT [facility] Last Admin: 10/29/18 10:12 Dose: 100 mls/hr Documented by: Insulin Glargine (Lantus) 10 units SUB-Q QHS [facility] Last Admin: 10/28/18 23:45 Dose: Not Given Documented by: Insulin Human Lispro (Humalog) 0 unit SUB-Q ACHS [facility]; Protocol Last Admin: 10/29/18 12:37 Dose: Not Given Documented by: Morphine Sulfate (Morphine) 2 mg IV Q4H PRN PRN Reason: Pain, Moderate (4-6) Stop: 10/29/18 23:59 Ondansetron HCl (Zofran) 4 mg IV Q8H PRN PRN Reason: Nausea And Vomiting Pantoprazole Sodium (Protonix) 40 mg PO DAILY [facility] Last Admin: 10/29/18 09:27 Dose: 40 mg Documented by: Sodium Chloride (Sodium Chloride Flush Syringe 10 Ml) 10 ml IV PRN PRN PRN Reason: LINE FLUSH Zolpidem Tartrate (Ambien) 5 mg PO QHS PRN PRN Reason: Insomnia Last Admin: 10/28/18 23:04 Dose: 5 mg Documented by: Physical Examination - Vital Signs Vital Signs: Vital Signs Temp Pulse Resp BP Pulse Ox 97.8 F 92 H 17 146/106 97 10/28/18 16:09 10/28/18 16:09 10/28/18 16:09 10/28/18 16:09 10/28/18 16:09 Results - Laboratory Findings CBC and BMP: 10/28/18 16:34 10/28/18 16:34 Abnormal Lab Findings: Abnormal Labs 10/28/18 10/28/18 10/28/18 16:33 16:34 16:34 RBC 5.89 H MCV 75 L MCH 24 L RDW 16.8 H Seg Neutrophils % 74.1 H PT 15.5 H INR 1.16 H Sodium Chloride Carbon Dioxide Glucose POC Glucose 309 H Hemoglobin A1c Calcium Total Creatine Kinase CK-MB (CK-2) HDL Cholesterol TSH Ur Specific [place] 10/28/18 10/28/18 10/28/18 16:34 16:34 16:34 RBC MCV MCH RDW Seg Neutrophils % PT INR Sodium 130 L Chloride 94.2 L Carbon Dioxide 21 L Glucose 244 H POC Glucose Hemoglobin A1c 11.7 H Calcium 8.1 L Total Creatine Kinase 225 H CK-MB (CK-2) 9.0 H HDL Cholesterol TSH Ur Specific [place] 10/28/18 10/28/18 10/28/18 16:43 18:20 23:55 RBC MCV MCH RDW Seg Neutrophils % PT INR Sodium Chloride Carbon Dioxide Glucose POC Glucose 124 H Hemoglobin A1c Calcium Total Creatine Kinase CK-MB (CK-2) HDL Cholesterol TSH 21.710 H Ur Specific [place] 1.037 H 10/29/18 10/29/18 05:46 16:49 RBC MCV MCH RDW Seg Neutrophils % PT INR Sodium Chloride Carbon Dioxide Glucose POC Glucose 276 H Hemoglobin A1c Calcium Total Creatine Kinase CK-MB (CK-2) HDL Cholesterol 35 L TSH Ur Specific [place] Assessment and Plan Mr. Yoo is a 53 year old gentleman with history of hypertension, diabetes and anxiety disorder who developed an episode of sudden onset of right-sided weakness involving right upper and lower extremity right upper extremity being more than the right lower extremity associated with the slurred speech. Patient denies any aphasia he states clearly that he understood what was spoken to him he did not have difficulty getting the words out however is pronunciation was slurred. He also developed numbness around his lips.. His symptoms started on the night of October 27 and the symptoms progressed and next day he came to the emergency. Patient was not given TPA because it was out of the window, more than 4-1/2 hours since onset. Patient had workup including MRI, MRA. MRI or MRA has not been reported to show any acute stroke. Patient will episode he has educated cholesterol and the LDL. Since admission patient's symptoms started improving gradually and today it is becoming almost normal. He does not have any facial twisting or significant weakness in right upper and lower extremities. Physical examination. Patient is alert and appropriate his insight into his problems and answers questions appropriately his mental status is normal Heart. Normal rate and rhythm. Carotid. Both palpable Cranial nerves. All cranial nerves are within normal limits no facial asymmetry was noted. Pupils reacted to light and accommodation facial sensation is normal other cranial cervical cranial nerves are also within normal limits. Motor. Very mild weakness of right upper R and lower extremity as compared to t he left. Reflexes. Reflexes in the right upper and lower extremities is slightly increased as compared to the left with upgoing toe on the right side. Coordination. Finger to nose within normal limits on both sides. Sensory. Sensory examination is grossly within normal limits without any asymm etry of sensation. Gait. Normal gait. Impression #1 patient seemed to have right-sided weakness from a lacunar infarct in the left hemisphere this seems to be small vessel disease due to poor control of diabetes and high blood pressure. Recommendation. #! Patient should be placed on high stating and aspirin. #2. Dietary and nutritional counseling to prevent future stroke #3,. 2D echo and carotid duplex #4 patient has serial hypothyroidism and patient should be seen by an sales and service advisor and appropriate treatment of hypothyroidism as hypothyroidism is an independent risk factor for stroke.
[2018-10-29] MEDS: AMBIEN PO PRN (21:58)
[2018-10-29] MEDS: LANTUS SUB-Q SCH (21:59)
[2018-10-30] MEDS: XANAX PO PRN (03:35)
[2018-10-30] MEDS: ASPIRIN PO SCH (09:48)
[2018-10-30] MEDS: PROTONIX PO SCH (09:48)
[2018-10-30] MEDS: LOVENOX SUB-Q SCH (09:48)
[2018-10-30] MEDS: COLACE PO SCH (09:49)
[2018-10-30] MEDS: HumaLOG SUB-Q SCH ×3 (09:49→18:30)
[2018-10-30 10:13] LABS: Calcium 8.3 mg/dL (8.4-10.2)
[2018-10-30] MEDS: NORCO 5/325 PO PRN (12:53)
--- NOTE | 2018-10-30 15:10 | Progress Note ---
Assessment and Plan /Acute CVA : with rt sided weakness present on admission; Not a candidate for TPA,not in the window of TPA aspirin and statin, Neurology consulted ordered PT,OT rehab per neuro patient seemed to have right-sided weakness from a lacunar infarct in the left hemisphere this seems to be small vessel disease due to poor control of diabetes and high blood pressure. /Type2 DM;moderate control cont SSI.ADA diet, A1c 11.7 Diabetic education /-Hypothyroidism: synthroid, May need to see endocrine upon discharge /-Hyponatremia: closely monitor electrolytes /-Hypertension: continue current antihypertensives, s/p permissive hypertension per stroke protocol /-Morbid obesity: BMI 43 advised weight reduction when medically stable /-Possible WHITLEY : cpap at night if needed patient needs out pt sleep study to r/o WHITLEY upon discharge / Lower extremity swelling - No edema clinically - We will order lower extremity Doppler to rule out possible underlying DVT --DVT prophylaxis : Lovenox Monitor closely and adjust the management as needed f/u neuro evaluation and recomendations Plan of care reviewed with the patient and his nurse Disposition: follow neuro w/u ,possible discharge in 1-2 days pending clinical status Brief History 53-year-old male with history of hypertension controlled without medication, hypothyroidism, DM, anxiety presents [facility] ED with complaints of global headache, right-sided weakness and slurred speech. On examination patient is noted to have slight right facial droop. Decreased sensation to right upper extremity. Muscle strength 4/5 on right upper extremity. CT a head unrevealing for hemorrhage, acute ischemia or mass. ,neuro workup in progress,neurology consulted,Symptoms significantly improved. Hospitalist Physical General appearance: Present: no acute distress, well-nourished, obese - EENT Eyes: Present: PERRL, EOM intact ENT: hearing intact - Neck Neck: Present: supple, normal ROM - Respiratory Respiratory effort: normal Respiratory: negative: rales, rhonchi, wheezing - Cardiovascular Rhythm: regular Heart Sounds: Present: S1 & S2 - Extremities Extremities: no ischemia, No edema - Abdominal General gastrointestinal: soft, non-tender, non-distended, normal bowel sounds - Integumentary Integumentary: Present: clear, warm - Psychiatric Psychiatric: appropriate mood/affect, cooperative - Neurologic Neurologic: CNII-XII intact, moves all extremities, other (very mild weakness Rt UE 4-5/5, speech clear) Subjective Date of service: 10/30/18 Interval history: Patient seen and examined. Medical records and medication list reviewed. No acute event overnight noted by the RN. Patient denies any chest pain or difficulty breathing. Patient is tolerating diet. Complaints of bilateral lower extremity swelling Discussed plan of care at bedside with patient. Objective - Constitutional Vitals: Vital Signs - 12hr 10/30/18 10/30/18 10/30/18 03:38 07:29 11:55 Temperature 97.9 F 97.5 F L Pulse Rate 92 H 93 H Respiratory 18 18 Rate Blood Pressure 120/86 131/90 O2 Sat by Pulse 93 Oximetry - Labs CBC & Chem 7: 10/28/18 16:34 10/31/18 05:18 Labs: Abnormal lab results 10/29/18 10/29/18 10/30/18 Range/Units 16:49 21:16 07:32 Sodium (137-145) mmol/L Chloride (98-107) mmol/L BUN (9-20) mg/dL Creatinine (0.8-1.5) mg/dL Glucose (75-100) mg/dL POC Glucose 276 H 223 H 195 H (70-105) Calcium (8.4-10.2) mg/dL 10/30/18 10/30/18 Range/Units 09:19 11:35 Sodium 129 L (137-145) mmol/L Chloride 92.8 L (98-107) mmol/L BUN 28 H (9-20) mg/dL Creatinine 1.8 H (0.8-1.5) mg/dL Glucose 160 H (75-100) mg/dL POC Glucose 207 H (70-105) Calcium 8.3 L (8.4-10.2) mg/dL
--- NOTE | 2018-10-30 15:31 | Consultation ---
History of Present Illness - Reason for Consult Consult date: 10/30/18 acute renal failure, chronic renal failure - History of Present Illness The patient is a 53 YO male with history signficant for DM type 2, Hypertension, Hypothyroidism, Obesity and Anxiety who presented to [facility] ED with complaints of right-sided weakness and slurred speech. Per patient the symptoms started the night prior to presentation. He experienced tingling, followed by right sided weakness, right facial droop and slurred speech. The symptoms didn't resolve the following day and he called the EMS. He also reports having MORAN, leg swelling and intermittent nausea. He recently lost his job and unable to refill the meds. Denies vomiting, abd pain, dysuria, hematuria, kidney stone, fever, chills, cough, hemoptysis, dizziness, syncope or gait disturbances. Creatinine increased from 1.3 to 1.8 today. Nephrology was consulted for further evaluation. Past History Past Medical History: diabetes, hypertension, hypothyroidism, other (anxiety) Past Surgical History: No surgical history Social history: no significant social history Family history: no significant family history Medications and Allergies Allergies Allergy/AdvReac Type Severity Reaction Status Date / Time No Known Allergies Allergy Verified 04/01/14 09:04 Home Medications Medication Instructions Recorded Confirmed Last Taken Type Albuterol Sulfate [Ventolin HFA] 2 puff IH Q4H PRN #1 hfa.aer.ad 04/01/14 Unknown Rx Azithromycin [Zithromax Z-DHARMESH] 250 mg PO DAILY #1 pkg 04/01/14 Unknown Rx Promethazine /Codeine 5 ml PO Q6H PRN #150 udc 04/01/14 Unknown Rx [Phenergan/Codeine 6.25-10 mg/5 ml] Active Meds: Active Medications Acetaminophen (Tylenol) 650 mg PO Q4H PRN PRN Reason: Pain, Mild (1-3) Acetaminophen/Hydrocodone Bitart ([place] 5/325) 1 each PO Q6H PRN PRN Reason: Pain, Moderate (4-6) Last Admin: 10/30/18 12:53 Dose: 1 each Documented by: Albuterol (Proventil) 2.5 mg IH Q3HRT PRN PRN Reason: Shortness Of Breath Alprazolam (Xanax) 0.5 mg PO Q8H PRN PRN Reason: Anxiety Last Admin: 10/30/18 03:35 Dose: 0.5 mg Documented by: Aspirin (Aspirin) 325 mg PO QDAY [facility] Last Admin: 10/30/18 09:48 Dose: 325 mg Documented by: Atorvastatin Calcium (Lipitor) 80 mg PO QHS [facility] Dextrose (D50w (25gm) Syringe) 50 ml IV PRN PRN PRN Reason: Hypoglycemia Docusate Sodium (Colace) 100 mg PO BID [facility] Last Admin: 10/30/18 09:49 Dose: 100 mg Documented by: Enoxaparin Sodium (Lovenox) 40 mg SUB-Q QDAY [facility] Last Admin: 10/30/18 09:48 Dose: 40 mg Documented by: Hydralazine HCl (Apresoline) 10 mg IV Q4HR PRN PRN Reason: Blood Pressure Insulin Glargine (Lantus) 10 units SUB-Q QHS [facility] Last Admin: 10/29/18 21:59 Dose: 10 units Documented by: Insulin Human Lispro (Humalog) 0 unit SUB-Q [facility]; Protocol Last Admin: 10/30/18 12:43 Dose: 3 unit Documented by: Levothyroxine Sodium (Synthroid) 150 mcg PO DAILY@0600 [facility] Levothyroxine Sodium (Synthroid) 25 mcg PO DAILY@0600 [facility] Ondansetron HCl (Zofran) 4 mg IV Q8H PRN PRN Reason: Nausea And Vomiting Pantoprazole Sodium (Protonix) 40 mg PO DAILY [facility] Last Admin: 10/30/18 09:48 Dose: 40 mg Documented by: Sodium Chloride (Sodium Chloride Flush Syringe 10 Ml) 10 ml IV PRN PRN PRN Reason: LINE FLUSH Zolpidem Tartrate (Ambien) 5 mg PO QHS PRN PRN Reason: Insomnia Last Admin: 10/29/18 21:58 Dose: 5 mg Documented by: Review of Systems Constitutional: no weight loss, no weight gain, no fever, no chills, no anorexia, no fatigue, no weakness Cardiovascular: edema, shortness of breath, high blood pressure, leg edema, no chest pain, no orthopnea, no syncope, no lightheadedness, no paroxysmal nocturnal dyspnea Respiratory: shortness of breath, no cough, no excessive sputum, no hemoptysis, no home oxygen Gastrointestinal: nausea, no abdominal pain, no vomiting, no diarrhea, no eugenio gale, no hematochezia Genitourinary Male: no dysuria, no hematuria Rectal: no bleeding Musculoskeletal: muscle weakness, no neck pain, no muscle cramps Integumentary: no rash, no redness, no sores, no wounds, no jaundice Neurological: weakness, parathesias, numbness, tingling, aphasia, change in speech, no paralysis, no seizures, no syncope, no convulsions, no change in men tation, no confusion Psychiatric: anxiety, no memory loss Exam - Vital Signs Vital signs: Vital Signs Temp Pulse Resp BP Pulse Ox 97.8 F 92 H 17 146/106 97 10/28/18 16:09 10/28/18 16:09 10/28/18 16:10/28/18 16:10/28/18 16:09 - General Appearance General appearance: well-developed, well-nourished, appears stated age, obese, other (no distress) EENT: ATNC, PERRL, mucous membranes moist, hearing intact, vision intact Neck: Present: neck supple, trachea midline Respiratory: Clear to Ascultation Heart: regular, S1S2, no murmurs Gastrointestinal: Present: normoactive bowel sounds. Absent: tenderness, distended Integumentary: no rash, warm and dry Neurologic: no focal deficit, no asterixis, alert and oriented x3 Musculoskeletal: Present: other (1+ edema of both LEs noted) Results - Lab Results 10/28/18 16:34 10/30/18 09:19 Most recent lab results Calcium 8.3 mg/dL (8.4-10.2) L 10/30/18 09:19 - Image Kidney/bladder ultrasound: pending Assessment and Plan 1. Acute kidney injury: VIELKA superimposed on CKD in the setting of contrast induce nephropathy. 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 Urine studies and Renal US ordered. Monitor renal function. Renal prognosis is guarded. Avoid nephrotoxic agents. Meds dosage based on GFR. 2. FEN: Hyponatremia, monitor. LE edema. Monitor lytes. 3. Acute CVA: Followed by Neuro. 4. Uncontrolled DM.
[2018-10-31] MEDS: COLACE PO SCH ×3 (01:38→22:00)
[2018-10-31] MEDS: HumaLOG SUB-Q SCH ×5 (01:39→22:00)
[2018-10-31] MEDS: LANTUS SUB-Q SCH ×2 (01:39→21:59)
[2018-10-31] MEDS: SYNTHROID PO SCH ×2 (05:14)
[2018-10-31] MEDS: NORCO 5/325 PO PRN ×3 (05:14→22:00)
[2018-10-31] MEDS ORDERED: SYNTHROID 150 MCG, SYNTHROID 25 MCG PO SCH (06:00)
--- NOTE | 2018-10-31 06:05 | Ultrasound Report ---
PROCEDURE: US RENAL BILAT TECHNIQUE: Routine transabdominal imaging was obtained of the retroperitoneum for evaluation of the kidneys and bladder. HISTORY: VIELKA COMPARISONS: None FINDINGS: Both kidneys are normal in size contour and cortical echotexture. The right kidney measures 12.3 x 6. 3 x 5.4 cm. The cortical thickness is 1.4 cm. The left kidney measures 10.8 x 6.8 x 5.1 cm. The cortical thickness is 1.9 cm. There is no evidence of shadowing stones or hydronephrosis bilaterally. The bladder appears normal. . IMPRESSION: Within normal limits.. This document is electronically signed by Jason Conte MD., October 31 2018 06:03:00 AM ET
[2018-10-31 06:18] LABS: Calcium 8.7 mg/dL (8.4-10.2)
--- NOTE | 2018-10-31 09:31 | Progress Note ---
Assessment and Plan 1. Acute kidney injury: VIELKA superimposed on CKD in the setting of contrast induce nephropathy. 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 Renal US was normal. Renal function is improving. Monitor renal function. Avoid nephrotoxic agents. Meds dosage based on GFR. 2. FEN: Hyponatremia, improving. LE edema. Admits drinking excessive fluids. Advised to limit fluid intake. Monitor lytes. 3. Acute CVA: Evaluated by Neuro. 4. Uncontrolled DM. Subjective Date of service: 10/31/18 Interval history: Patient was seen and examined at the bedside. Doing ok. Objective - Vital Signs Vital signs: Vital Signs - 12hr 10/30/18 10/30/18 10/31/18 23:00 23:31 04:17 Temperature 98.3 F 98.2 F Pulse Rate 90 94 H 91 H Respiratory 20 18 18 Rate Blood Pressure 149/95 141/93 O2 Sat by Pulse 94 95 Oximetry 10/31/18 08:37 Temperature Pulse Rate Respiratory 18 Rate Blood Pressure O2 Sat by Pulse Oximetry - General Appearance General appearance: well-developed, well-nourished, appears stated age, obese, other (no distress) EENT: ATNC, PERRL, mucous membranes moist, hearing intact, vision intact Neck: supple Respiratory: Present: Clear to Ascultation Cardiology: regular, S1S2, no murmurs Gastrointestinal: normoactive bowel sounds, no tenderness, no distended Integumentary: no rash, warm and dry Neurologic: no focal deficit, no asterixis, alert and oriented x3 Musculoskeletal: other (1+ edema of both LEs noted) - Lab 10/28/18 16:34 11/01/18 06:51 Most recent lab results Calcium 8.7 mg/dL (8.4-10.2) 10/31/18 05:18 Phosphorus 3.00 mg/dL (2.5-4.5) 10/31/18 05:18 Magnesium 1.20 mg/dL (1.7-2.3) L 10/31/18 05:18 Medications & Allergies - Medications Allergies/Adverse Reactions: Allergies No Known Allergies Allergy (Verified 04/01/14 09:04) Home Medications: Home Medications Medication Instructions Recorded Confirmed Last Taken Type Aspirin EC 81 mg PO QDAY #30 tablet. 10/31/18 Unknown Rx AtorvaSTATin [Lipitor] 40 mg PO QHS #30 tablet 10/31/18 Unknown Rx Insulin Glargine [Lantus VIAL] 10 units SUB-Q QHS #10 ml 10/31/18 Unknown Rx Levothyroxine [Synthroid] 25 mcg PO DAILY@0600 #30 tablet 10/31/18 Unknown Rx Levothyroxine [Synthroid] 150 mcg PO DAILY@0600 #30 tablet 10/31/18 Unknown Rx Active Medications: Generic Name Dose Route Start Last Admin Trade Name Freq PRN Reason Stop Dose Admin Acetaminophen 650 mg 10/28/18 19:45 Tylenol PO Q4H PRN Pain, Mild (1-3) Acetaminophen/Hydrocodone Bitart 1 each 10/30/18 12:21 10/31/18 05:14 [place] 5/325 PO 1 each Q6H PRN Administration Pain, Moderate (4-6) Albuterol 2.5 mg 10/28/18 19:45 Proventil IH Q3HRT PRN Shortness Of Breath Alprazolam 0.5 mg 10/28/18 19:50 10/30/18 03:35 Xanax PO 0.5 mg Q8H PRN Administration Anxiety Aspirin 325 mg 10/29/18 10:00 10/30/18 09:48 Aspirin PO 325 mg QDAY [facility] Administration Atorvastatin Calcium 80 mg 10/30/18 22:00 10/31/18 01:41 Lipitor PO Not Given QHS [facility] Dextrose 50 ml 10/28/18 19:45 D50w (25gm) Syringe IV PRN PRN Hypoglycemia Docusate Sodium 100 mg 10/28/18 22:00 10/31/18 01:38 Colace PO Not Given BID [facility] Enoxaparin Sodium 40 mg 10/28/18 20:00 10/30/18 09:48 Lovenox SUB-Q 40 mg QDAY [facility] Administration Hydralazine HCl 10 mg 10/28/18 19:58 Apresoline IV Q4HR PRN Blood Pressure Insulin Glargine 10 units 10/28/18 22:00 10/31/18 01:39 Lantus SUB-Q Not Given QHS [facility] Insulin Human Lispro 0 unit 10/28/18 22:00 10/31/18 08:45 Humalog SUB-Q Not Given [facility] Protocol Levothyroxine Sodium 150 mcg 10/31/18 06:00 10/31/18 05:14 Synthroid PO 150 mcg DAILY@0600 JETHRO Administration Levothyroxine Sodium 25 mcg 10/31/18 06:00 10/31/18 05:14 Synthroid PO 25 mcg DAILY@0600 [facility] Administration Ondansetron HCl 4 mg 10/28/18 19:45 Zofran IV Q8H PRN Nausea And Vomiting Pantoprazole Sodium 40 mg 10/28/18 22:00 10/30/18 09:48 Protonix PO 40 mg DAILY JTE[facility]O Administration Sodium Chloride 10 ml 10/28/18 19:45 Sodium Chloride Flush Syringe 10 Ml IV PRN PRN LINE FLUSH Zolpidem Tartrate 5 mg 10/28/18 19:49 10/29/18 21:58 Ambien PO 5 mg QHS PRN Administration Insomnia
[2018-10-31] MEDS: LOVENOX SUB-Q SCH (10:15)
[2018-10-31] MEDS: PROTONIX PO SCH (10:15)
[2018-10-31] MEDS: ASPIRIN PO SCH (10:15)
--- NOTE | 2018-10-31 12:32 | Discharge Summary ---
Providers - Providers Date of Admission: 10/28/18 19:45 Date of discharge: 10/31/18 Attending physician: SHARLA AVALOS 10/28/18 Consult to Physician [CONS] Routine Comment: Consulting Provider: PASTOR AJSSO Physician Instructions: Reason For Exam: suspected storke, rt facial droop, slurred speach, 10/28/18 19:45 Consult to Dietitian/Nutrition [CONS] Routine Physician Instructions: Reason For Exam: Reason for Consult: Diet education Occupational Therapy Evaluate and Treat [CONS] Routine Comment: Reason For Exam: Neuro deficits Physical Therapy Evaluation and Treat [CONS] Routine Comment: Reason For Exam: Neuro deficits 10/30/18 12:21 Consult to Physician [CONS] Routine Comment: Consulting Provider: KAYLEEN LOPES Physician Instructions: Reason For Exam: VIELKA [facility] Condition: Stable Disposition: DC-30 STILL A PATIENT Exam - Constitutional Vitals: Temp Pulse Resp BP Pulse Ox 98.2 F 91 H 18 141/93 95 10/31/18 04:17 10/31/18 04:17 10/31/18 08:37 10/31/18 04:17 10/31/18 04:17 Plan Activity: advance as tolerated Weight Bearing Status: Weight Bear as Tolerated Diet: diabetic Special Instructions: record daily BP diary, record blood sugar diary [facility] - 7 Days Prescriptions: Insulin Glargine [Lantus VIAL] 10 units SUB-Q QHS #10 ml AtorvaSTATin [Lipitor] 40 mg PO QHS #30 tablet Aspirin EC 81 mg PO QDAY #30 tablet. Levothyroxine [Synthroid] 150 mcg PO DAILY@0600 #30 tablet Levothyroxine [Synthroid] 25 mcg PO DAILY@0600 #30 tablet Other Discharge Orders: Glucometer (Amb) Location: None Selected Glucometer supplies[Amb] Location: None Selected
[2018-10-31 12:49] LABS: Creatinine,Urine 46.2 mg/dL (0.1-20.0)
[2018-10-31 14:13] LABS: Protein/Creatinine Ratio,Urine 2.01
--- NOTE | 2018-10-31 14:32 | Vascular Lab Report ---
PROCEDURE: VL VENOUS DUPLEX LE BILAT TECHNIQUE: Grayscale, color flow and spectral waveform images were obtained of bilateral lower extre mities. HISTORY: swelling COMPARISON: None FINDINGS: There is no deep venous thrombosis seen in the left or right lower extremity. Flow is demonstrated by color flow and spectral waveform imaging. There is appropriate wall compression and augmentation. There is also superficial venous thrombus seen. There is lower extremity edema bilaterally IMPRESSION: There is no evidence for DVT in either right or left lower extremity. This document is electronically signed by Ester Patterson MD., October 31 2018 02:29:42 PM ET
[2018-10-31] MEDS ORDERED: MAGNESIUM SULFATE 2GM/50ML 2 GM/50 ML BAG IV ONE (21:09)
[2018-10-31] MEDS: XANAX PO PRN (23:38)
[2018-11-01] MEDS: SYNTHROID PO SCH ×2 (06:07)
[2018-11-01 07:33] LABS: Calcium 8.7 mg/dL (8.4-10.2)
[2018-11-01] MEDS: NORCO 5/325 PO PRN ×3 (08:16→18:39)
[2018-11-01] MEDS: HumaLOG SUB-Q SCH ×4 (08:19→22:16)
--- NOTE | 2018-11-01 09:17 | Ultrasound Report ---
PROCEDURE: US TESTICULAR DOPPLER COMP TECHNIQUE: Scrotal ultrasound with color Doppler. HISTORY: scrotal swelling COMPARISON: None FINDINGS: The right testicle measures 4.5 x 2.2 x 2.7 cm. The left measures 4.2 x 2.4 x 2.6 cm. There is diffuse swelling of the scrotal wall. There is no significant hydrocele. Testicular blood flow is symmetric. Right epididymal is prominent, tail measuring 1.3 cm in thickness. Left epididymal is mildly prominen t, tail measuring 9 mm thickness. I cannot confirm significant hyperemia; nevertheless epididymitis n ot excluded bilaterally although enlargement may reflect the diffuse edematous process. IMPRESSION: Very thickened edematous scrotal wall diffusely. The epididymis are prominent bilaterall y, right more than left. I cannot confirm significant hyperemia; nevertheless, epididymitis not exclu ded bilaterally. This document is electronically signed by Ester Patterson MD., November 01 2018 09:15:27 AM ET
[2018-11-01] MEDS: LOVENOX SUB-Q SCH (09:53)
[2018-11-01] MEDS: COLACE PO SCH ×2 (09:53→21:55)
[2018-11-01] MEDS: ASPIRIN PO SCH (09:53)
[2018-11-01] MEDS: PROTONIX PO SCH (09:53)
--- NOTE | 2018-11-01 09:53 | Progress Note ---
Assessment and Plan 1. Acute kidney injury: VIELKA superimposed on CKD in the setting of contrast induce nephropathy. 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 Renal US was normal. Renal function is improving. Monitor renal function. Avoid nephrotoxic agents. Meds dosage based on GFR. 2. FEN: Hyponatremia, improving. Replete Mg. LE edema. Admits drinking excessive fluids. Advised to limit fluid intake. Monitor lytes. 3. Acute CVA: Evaluated by Neuro. 4. CHF. 5. Uncontrolled DM. Subjective Date of service: 11/01/18 Interval history: Patient was seen and examined at the bedside. Doing ok. Objective - Vital Signs Vital signs: Vital Signs - 12hr 10/31/18 10/31/18 10/31/18 22:00 23:00 23:24 Temperature 98.0 F Pulse Rate 87 84 Respiratory 20 18 Rate Blood Pressure 137/88 Blood Pressure [Left] O2 Sat by Pulse 96 Oximetry 11/01/18 11/01/18 11/01/18 04:25 07:26 08:30 Temperature 98.0 F 97.1 F L 98.2 F Pulse Rate 91 H 88 Respiratory 18 18 Rate Blood Pressure 154/107 193/126 Blood Pressure 143/93 [Left] O2 Sat by Pulse 96 Oximetry - General Appearance General appearance: well-developed, well-nourished, appears stated age, obese, other (no distress) EENT: ATNC, PERRL, mucous membranes moist, hearing intact, vision intact Neck: supple Respiratory: Present: Clear to Ascultation Cardiology: regular, S1S2, no murmurs Gastrointestinal: normoactive bowel sounds, no tenderness, no distended, obese Integumentary: no rash, warm and dry Neurologic: no focal deficit, no asterixis, alert and oriented x3 Musculoskeletal: other (1+ edema of both LEs noted) - Lab 10/28/18 16:34 11/01/18 06:51 Most recent lab results Calcium 8.7 mg/dL (8.4-10.2) 11/01/18 06:51 Phosphorus 3.00 mg/dL (2.5-4.5) 10/31/18 05:18 Magnesium 1.40 mg/dL (1.7-2.3) L 11/01/18 06:51 46.2 mg/dL (0.1-20.0) H 10/30/18 Unknown 46 mmol/L 10/30/18 Unknown 93 mg/dL (5-11.8) H 10/30/18 Unknown Medications & Allergies - Medications Allergies/Adverse Reactions: Allergies No Known Allergies Allergy (Verified 04/01/14 09:04) Home Medications: Home Medications Medication Instructions Recorded Confirmed Last Taken Type Aspirin EC 81 mg PO QDAY #30 tablet. 10/31/18 Unknown Rx AtorvaSTATin [Lipitor] 40 mg PO QHS #30 tablet 10/31/18 Unknown Rx Insulin Glargine [Lantus VIAL] 10 units SUB-Q QHS #10 ml 10/31/18 Unknown Rx Levothyroxine [Synthroid] 25 mcg PO DAILY@0600 #30 tablet 10/31/18 Unknown Rx Levothyroxine [Synthroid] 150 mcg PO DAILY@0600 #30 tablet 10/31/18 Unknown Rx Active Medications: Generic Name Dose Route Start Last Admin Trade Name Freq PRN Reason Stop Dose Admin Acetaminophen 650 mg 10/28/18 19:45 Tylenol PO Q4H PRN Pain, Mild (1-3) Acetaminophen/Hydrocodone Bitart 1 each 10/30/18 12:21 11/01/18 08:16 [place] 5/325 PO 1 each Q6H PRN Administration Pain, Moderate (4-6) Albuterol 2.5 mg 10/28/18 19:45 Proventil IH Q3HRT PRN Shortness Of Breath Alprazolam 0.5 mg 10/28/18 19:50 10/31/18 23:38 Xanax PO 0.5 mg Q8H PRN Administration Anxiety Aspirin 325 mg 10/29/18 10:00 10/31/18 10:15 Aspirin PO 325 mg QDAY JETHRO Administration Atorvastatin Calcium 80 mg 10/30/18 22:00 10/31/18 22:00 Lipitor PO 80 mg QHS JETHRO Administration Dextrose 50 ml 10/28/18 19:45 D50w (25gm) Syringe IV PRN PRN Hypoglycemia Docusate Sodium 100 mg 10/28/18 22:00 10/31/18 22:00 Colace PO 100 mg BID JETHRO Administration Enoxaparin Sodium 40 mg 10/28/18 20:00 10/31/18 10:15 Lovenox SUB-Q 40 mg QDAY JETHRO Administration Hydralazine HCl 10 mg 10/28/18 19:58 Apresoline IV Q4HR PRN Blood Pressure Magnesium Sulfate 4 gm in 100 mls @ 25 mls/hr 11/01/18 09:35 Magnesium Sulfate 4gm/100ml IV 11/01/18 13:34 ONCE ONE Insulin Glargine 10 units 10/28/18 22:00 10/31/18 21:59 Lantus SUB-Q 10 units QHS JETHRO Administration Insulin Human Lispro 0 unit 10/28/18 22:00 11/01/18 08:19 Humalog SUB-Q 2 unit ACHS JETHRO Administration Protocol Levothyroxine Sodium 150 mcg 10/31/18 06:00 11/01/18 06:07 Synthroid PO 150 mcg DAILY@0600 JETHRO Administration Levothyroxine Sodium 25 mcg 10/31/18 06:00 11/01/18 06:07 Synthroid PO 25 mcg DAILY@0600 JETHRO Administration Ondansetron HCl 4 mg 10/28/18 19:45 Zofran IV Q8H PRN Nausea And Vomiting Pantoprazole Sodium 40 mg 10/28/18 22:00 10/31/18 10:15 Protonix PO 40 mg DAILY JETHRO Administration Sodium Chloride 10 ml 10/28/18 19:45 Sodium Chloride Flush Syringe 10 Ml IV PRN PRN LINE FLUSH Zolpidem Tartrate 5 mg 10/28/18 19:49 10/29/18 21:58 Ambien PO 5 mg QHS PRN Administration Insomnia
[2018-11-01] MEDS: XANAX PO PRN ×2 (10:21→21:54)
[2018-11-01] MEDS ORDERED: MAGNESIUM SULFATE 4GM/100ML 4 GM/100 ML BAG IV ONE (10:30)
--- NOTE | 2018-11-01 10:50 | Progress Note ---
Assessment and Plan /Acute CVA : with rt sided weakness present on admission; Not a candidate for TPA as not in the window of TPA cont aspirin and statin, Neurology consulted ordered PT,OT rehab per neuro patient seemed to have right-sided weakness from a lacunar infarct in the left hemisphere this seems to be small vessel disease due to poor control of diabetes and high blood pressure. /Type2 DM;moderate control cont SSI.ADA diet, A1c 11.7 Diabetic education /-Hypothyroidism: started on high dose synthroid, outpt endocrine followup /-Hyponatremia: closely monitor electrolytes /-Hypertension: continue current antihypertensives, s/p permissive hypertension per stroke protocol /-Morbid obesity: BMI 43 advised weight reduction when medically stable /-Possible WHITLEY : cpap at night if needed patient needs out pt sleep study to r/o WHITLEY upon discharge / Lower extremity swelling - No obvious edema clinically but per pt it seems much bigger - lower extremity Doppler showed no underlying DVT - wait for 2d echo report /Scrotal swelling, order testicular doppler --DVT prophylaxis : Lovenox Monitor closely and adjust the management as needed f/u 2d echo report and testicular doppler Plan of care reviewed with the patient and his nurse Disposition: follow neuro w/u ,possible discharge in 1-2 days pending clinical status Brief History 53-year-old male with history of hypertension controlled without medication, hypothyroidism, DM, anxiety presents [facility] ED with complaints of global headache, right-sided weakness and slurred speech. On examination patient is noted to have slight right facial droop. Decreased sensation to right upper extremity. Muscle strength 4/5 on right upper extremity. CT a head unrevealing for hemorrhage, acute ischemia or mass. ,neuro workup in progress,neurology consulted,Symptoms significantly improved. Hospitalist Physical General appearance: Present: no acute distress, well-nourished, obese - EENT Eyes: Present: PERRL, EOM intact ENT: hearing intact - Neck Neck: Present: supple, normal ROM - Respiratory Respiratory effort: normal Respiratory: negative: rales, rhonchi, wheezing - Cardiovascular Rhythm: regular Heart Sounds: Present: S1 & S2 - Extremities Extremities: no ischemia, No edema - Abdominal General gastrointestinal: soft, non-tender, non-distended, normal bowel sounds, scrotal swelling - Integumentary Integumentary: Present: clear, warm - Psychiatric Psychiatric: appropriate mood/affect, cooperative - Neurologic Neurologic: CNII-XII intact, moves all extremities, clear speech Subjective Date of service: 10/31/18 Interval history: Patient seen and examined. Medical records and medication list reviewed. No acute event overnight noted by the RN. Patient denies any chest pain or difficulty breathing. Patient is tolerating diet. Complaints of bilateral lower extremity swelling and states his scrotum also getting bigger in size Discussed plan of care at bedside with patient. Objective - Constitutional Vitals: Vital Signs - 12hr 10/31/18 10/31/18 11/01/18 23:00 23:24 04:25 Temperature 98.0 F 98.0 F Pulse Rate 87 84 91 H Respiratory 18 18 Rate Blood Pressure 137/88 154/107 Blood Pressure [Left] O2 Sat by Pulse 96 96 Oximetry 11/01/18 11/01/18 07:26 08:30 Temperature 97.1 F L 98.2 F Pulse Rate 88 Respiratory 18 Rate Blood Pressure 193/126 Blood Pressure 143/93 [Left] O2 Sat by Pulse Oximetry - Labs CBC & Chem 7: 10/28/18 16:34 11/01/18 06:51 Labs: Abnormal lab results 10/30/18 10/31/18 10/31/18 Range/Units Unknown 12:48 16:54 Sodium (137-145) mmol/L BUN (9-20) mg/dL Glucose (75-100) mg/dL POC Glucose 234 H 253 H (70-105) Magnesium (1.7-2.3) mg/dL Urine Creatinine 46.2 H (0.1-20.0) mg/dL Urine Total Protein 93 H (5-11.8) mg/dL 10/31/18 11/01/18 11/01/18 Range/Units 20:25 06:51 07:29 Sodium 134 L (137-145) mmol/L BUN 23 H (9-20) mg/dL Glucose 169 H (75-100) mg/dL POC Glucose 235 H 174 H (70-105) Magnesium 1.40 L (1.7-2.3) mg/dL Urine Creatinine (0.1-20.0) mg/dL Urine Total Protein (5-11.8) mg/dL
--- NOTE | 2018-11-01 13:21 | Progress Note ---
Assessment and Plan /New onset CHFrEF with exacerbation - EF ON 2D ECHO 30-35%, CLINICALLY MILD VOLUME OVERLOADED WITH MILD SCROTAL SWELLING - START ON LASIX, BB, CONSULT CARDIOLOGY - Plan for stress test tomorrow /Acute CVA : with rt sided weakness present on admission; Not a candidate for TPA as not in the window of TPA cont aspirin and statin, Neurology consulted ordered PT,OT rehab per neuro patient seemed to have right-sided weakness from a lacunar infarct in the left hemisphere this seems to be small vessel disease due to poor control of diabetes and high blood pressure. /Type2 DM;moderate control cont SSI.ADA diet, A1c 11.7 Diabetic education /-Hypothyroidism: started on high dose synthroid, outpt endocrine followup /-Hyponatremia: closely monitor electrolytes /-Hypertension: continue current antihypertensives, s/p permissive hypertension per stroke protocol /-Morbid obesity: BMI 43 advised weight reduction when medically stable /-Possible WHITLEY : cpap at night if needed patient needs out pt sleep study to r/o WHITLEY upon discharge / mild Anaserca with mild Lower extremity and scrotal swelling - lower extremity Doppler showed no underlying DVT - testicular doppler ordered, had reduced Ef on 2d echo, start on lasix --DVT prophylaxis : Lovenox Monitor closely and adjust the management as needed f/u cardiac recommendation Plan of care reviewed with the patient and his nurse Disposition: possible discharge in 1-2 days pending clinical status Brief History 53-year-old male with history of hypertension controlled without medication, hypothyroidism, DM, anxiety presents [facility] with complaints of global headache, right-sided weakness and slurred speech. On examination patient is noted to have slight right facial droop. Decreased sensation to right upper extremity. Muscle strength 4/[address] on right upper extremity. CT a head unrevealing for hemorrhage, acute ischemia or mass. ,neuro workup in progress,neurology consulted,Symptoms significantly improved. he then c/o LE and scrotal swelling. 2d echo showed reduced EF, cardiology consulted. Hospitalist Physical General appearance: Present: no acute distress, well-nourished, obese - EENT Eyes: Present: PERRL, EOM intact ENT: hearing intact - Neck Neck: Present: supple, normal ROM - Respiratory Respiratory effort: normal Respiratory: negative: rales, rhonchi, wheezing - Cardiovascular Rhythm: regular Heart Sounds: Present: S1 & S2 - Extremities Extremities: no ischemia, No edema - Abdominal General gastrointestinal: soft, non-tender, non-distended, normal bowel sounds, scrotal swelling - Integumentary Integumentary: Present: clear, warm - Psychiatric Psychiatric: appropriate mood/affect, cooperative - Neurologic Neurologic: CNII-XII intact, moves all extremities, clear speech Subjective Date of service: 11/01/18 Interval history: Patient seen and examined. Medical records and medication list reviewed. No acute event overnight noted by the RN. Patient denies any chest pain or difficulty breathing. Patient is tolerating diet. still Complaints of bilateral lower extremity and scrotum swelling Discussed plan of care at bedside with patient. Objective - Constitutional Vitals: Vital Signs - 12hr 11/01/18 11/01/18 11/01/18 04:25 07:00 07:26 Temperature 98.0 F 97.1 F L Pulse Rate 91 H 88 Pulse Rate [ Apical] Pulse Rate [ Left Dorsalis Pedis] Pulse Rate [ Left Radial] Pulse Rate [ Right Dorsalis Pedis] Pulse Rate [ Right Radial] Respiratory 18 18 Rate Blood Pressure 154/107 193/126 Blood Pressure [Left] O2 Sat by Pulse 96 Oximetry 11/01/18 11/01/18 11/01/18 08:12 08:30 09:51 Temperature 98.2 F Pulse Rate 87 88 91 H Pulse Rate [ Apical] Pulse Rate [ Left Dorsalis Pedis] Pulse Rate [ Left Radial] Pulse Rate [ Right Dorsalis Pedis] Pulse Rate [ Right Radial] Respiratory Rate Blood Pressure 143/93 146/99 Blood Pressure 143/93 [Left] O2 Sat by Pulse 97 97 Oximetry 11/01/18 11/01/18 10:00 11:32 Temperature 97.5 F L Pulse Rate Pulse Rate [ 88 Apical] Pulse Rate [ 88 Left Dorsalis Pedis] Pulse Rate [ 88 Left Radial] Pulse Rate [ 88 Right Dorsalis Pedis] Pulse Rate [ 88 Right Radial] Respiratory 19 18 Rate Blood Pressure 157/99 Blood Pressure [Left] O2 Sat by Pulse 99 Oximetry - Labs CBC & Chem 7: 11/02/18 05:28 11/02/18 05:28 Labs: Abnormal lab results 10/30/18 10/31/18 10/31/18 Range/Units Unknown 16:54 20:25 Sodium (137-145) mmol/L BUN (9-20) mg/dL Glucose (75-100) mg/dL POC Glucose 253 H 235 H (70-105) Magnesium (1.7-2.3) mg/dL Urine Total Protein 93 H (5-11.8) mg/dL 11/01/18 11/01/18 11/01/18 Range/Units 06:51 07:29 11:36 Sodium 134 L (137-145) mmol/L BUN 23 H (9-20) mg/dL Glucose 169 H (75-100) mg/dL POC Glucose 174 H 197 H (70-105) Magnesium 1.40 L (1.7-2.3) mg/dL Urine Total Protein (5-11.8) mg/dL
[2018-11-01] MEDS: LASIX IV SCH (13:56)
--- NOTE | 2018-11-01 14:38 | Consultation ---
History of Present Illness Consult date: 11/01/18 Requesting physician: SHARLA AVALOS Consult reason: congestive heart failure History of present illness: The pt is a 53-year-old male with history of hypertension controlled without medication, hypothyroidism, DM, anxiety, WHITLEY, GERD. He is previously unknown to our practice. He presented with c/o headache, right-sided weakness, slurred speech, progressively worsening SOB and scrotal edema for 1 day prior to arriva l. Pt denies any chest pain, palpitations, n/v, diaphoresis, dizziness or syncope. Per neurology, patient seemed to have right-sided weakness from a lacunar infarct in the left hemisphere this seems to be small vessel disease due to poor control of diabetes and high blood pressure. Pt underwent echo which showed EF 35-40% and thus cardiology has been consulted. Pt denies any prior cardiac issues, including CAD, AMI or HF. He states that he recently had a calcium score done with a [employer] coupon and was told his calcium score was normal. Past History Past Medical History: diabetes, hypertension, hypothyroidism, other (anxiety) Past Surgical History: No surgical history Social history: no significant social history Family history: no significant family history Medications and Allergies Allergies Allergy/AdvReac Type Severity Reaction Status Date / Time No Known Allergies Allergy Verified 04/01/14 09:04 Home Medications Medication Instructions Recorded Confirmed Last Taken Type Albuterol Sulfate [Ventolin HFA] 2 puff IH Q4H PRN #1 hfa.aer.ad 04/01/14 Unknown Rx Aspirin EC 81 mg PO QDAY #30 tablet. 10/31/18 Unknown Rx AtorvaSTATin [Lipitor] 40 mg PO QHS #30 tablet 10/31/18 Unknown Rx Insulin Glargine [Lantus VIAL] 10 units SUB-Q QHS #10 ml 10/31/18 Unknown Rx Levothyroxine [Synthroid] 25 mcg PO DAILY@0600 #30 tablet 10/31/18 Unknown Rx Levothyroxine [Synthroid] 150 mcg PO DAILY@0600 #30 tablet 10/31/18 Unknown Rx Active Meds: Active Medications Acetaminophen (Tylenol) 650 mg PO Q4H PRN PRN Reason: Pain, Mild (1-3) Acetaminophen/Hydrocodone Bitart ([place] 5/325) 1 each PO Q6H PRN PRN Reason: Pain, Moderate (4-6) Last Admin: 11/01/18 13:41 Dose: 1 each Documented by: Albuterol (Proventil) 2.5 mg IH Q3HRT PRN PRN Reason: Shortness Of Breath Alprazolam (Xanax) 0.5 mg PO Q8H PRN PRN Reason: Anxiety Last Admin: 11/01/18 10:21 Dose: 0.5 mg Documented by: Aspirin (Aspirin) 325 mg PO QDAY [facility] Last Admin: 11/01/18 09:53 Dose: 325 mg Documented by: Atorvastatin Calcium (Lipitor) 80 mg PO QHS [facility] Last Admin: 10/31/18 22:00 Dose: 80 mg Documented by: Carvedilol (Coreg) 3.125 mg PO BID [facility] Dextrose (D50w (25gm) Syringe) 50 ml IV PRN PRN PRN Reason: Hypoglycemia Docusate Sodium (Colace) 100 mg PO BID [facility] Last Admin: 11/01/18 09:53 Dose: 100 mg Documented by: Enoxaparin Sodium (Lovenox) 40 mg SUB-Q QDAY [facility] Last Admin: 11/01/18 09:53 Dose: 40 mg Documented by: Furosemide (Lasix) 40 mg IV QDAY [facility] Last Admin: 11/01/18 13:56 Dose: 40 mg Documented by: Hydralazine HCl (Apresoline) 10 mg IV Q4HR PRN PRN Reason: Blood Pressure [facility] Admin: 10/31/18 21:59 Dose: 10 units Documented by: Insulin Human Lispro (Humalog) 0 unit SUB-Q [facility]; Protocol Last Admin: 11/01/18 12:31 Dose: 2 unit Documented by: Levothyroxine Sodium (Synthroid) 150 mcg PO DAILY@0600 [facility] Last Admin: 11/01/18 06:07 Dose: 150 mcg Documented by: Levothyroxine Sodium (Synthroid) 25 mcg PO DAILY@0600 [facility] Last Admin: 11/01/18 06:07 Dose: 25 mcg Documented by: Ondansetron HCl (Zofran) 4 mg IV Q8H PRN PRN Reason: Nausea And Vomiting Pantoprazole Sodium (Protonix) 40 mg PO DAILY [facility] Last Admin: 11/01/18 09:53 Dose: 40 mg Documented by: Sodium Chloride (Sodium Chloride Flush Syringe 10 Ml) 10 ml IV PRN PRN PRN Reason: LINE FLUSH Zolpidem Tartrate (Ambien) 5 mg PO QHS PRN PRN Reason: Insomnia Last Admin: 10/29/18 21:58 Dose: 5 mg Documented by: Review of Systems Constitutional: weakness (right-sided), no fever, no chills, no sweats Ears, nose, mouth and throat: no ear pain, no nose pain, no sinus pressure, no sinus pain Cardiovascular: orthopnea, edema, shortness of breath, dyspnea on exertion, paroxysmal nocturnal dyspnea, high blood pressure, leg edema, no chest pain, no palpitations, no rapid/irregular heart beat, no syncope, no lightheadedness Respiratory: shortness of breath, dyspnea on exertion, no cough, no congestion, no wheezing, no pain on inspiration Gastrointestinal: no abdominal pain, no nausea, no vomiting, no diarrhea, no constipation, no change in bowel habits Genitourinary Male: no dysuria, no hematuria, no flank pain, no discharge, no urinary frequency, no urinary hesitancy Musculoskeletal: no neck stiffness, no neck pain, no shooting arm pain, no arm numbness/tingling, no low back pain, no shooting leg pain Integumentary: no rash, no pruritis, no redness, no sores, no wounds Neurological: weakness (right-sided), headaches, no head injury, no paralysis, no seizures, no syncope Psychiatric: anxiety Endocrine: no cold intolerance, no heat intolerance Hematologic/Lymphatic: no easy bruising, no easy bleeding Allergic/Immunologic: no urticaria, no wheezing Physical Examination Vital Signs Temp Pulse Resp BP Pulse Ox 97.8 F 92 H 17 146/106 97 10/28/18 16:09 10/28/18 16:09 10/28/18 16:09 10/28/18 16:09 10/28/18 16:09 General appearance: no acute distress HEENT: Positive: PERRL, Normocephaly, Mucus Membranes Moist Neck: Positive: neck supple, trachea midline Cardiac: Positive: Reg Rate and Rhythm, S1/S2 Lungs: Positive: Decreased Breath Sounds Neuro: Positive: Grossly Intact Abdomen: Negative: Tender Male genitourinary: Positive: scrotal edema Skin: Negative: Rash Musculoskeletal: No Pain Extremities: Present: +1 Edema (BLE) Results 10/28/18 16:34 11/01/18 06:51 Comprehensive Metabolic Panel 11/01/18 Range/Units 06:51 Sodium 134 L (137-145) mmol/L Potassium 4.7 (3.6-5.0) mmol/L Chloride 98.8 (98-107) mmol/L Carbon Dioxide 24 (22-30) mmol/L BUN 23 H (9-20) mg/dL Creatinine 1.4 (0.8-1.5) mg/dL Glucose 169 H (75-100) mg/dL Calcium 8.7 (8.4-10.2) mg/dL - Imaging and Cardiology Echo: report reviewed (EF 35-40%, LV mildly dilated, restrictive diastolic filling, RV mod dilated, mild MR, RVSP 45mmHg) EKG interpretations - Telemetry EKG Rhythm: Sinus Rhythm - EKG Sinus rhythms and dysrhythmias: sinus rhythm Assessment and Plan Cont GDMT and IV diuretics as tolerated. Monitor renal indices. Replete lytes PRN. Plan for lexiscan MPI stress test in AM to r/o ischemic CMP. NPO after MN. The patient has been seen in conjunction with Dr. Lane who agrees with the assessment and plan of care. - Patient Problems (1) Acute HFrEF (heart failure with reduced ejection fraction) Current Visit: Yes Status: Acute (2) Cardiomyopathy Current Visit: Yes Status: Chronic (3) Right sided weakness Current Visit: Yes Status: Resolved (4) HTN (hypertension) Current Visit: Yes Status: Chronic (5) Diabetes Current Visit: Yes Status: Chronic (6) Hypothyroidism Current Visit: Yes Status: Chronic (7) VIELKA (acute kidney injury) Current Visit: Yes Status: Acute (8) Hypomagnesemia Current Visit: Yes Status: Acute (9) Sleep apnea Current Visit: Yes Status: Chronic (10) Obesity Current Visit: Yes Status: Chronic
[2018-11-01] MEDS: AMBIEN PO PRN (21:55)
[2018-11-01] MEDS ORDERED: COREG PO SCH (22:00)
[2018-11-01] MEDS: LANTUS SUB-Q SCH (22:00)
[2018-11-02 06:04] LABS: Basophils # (Auto) 0.1 K/mm3 (0.0-0.1); Basophils % (Auto) 1.2 % (0.0-1.8); Eosinophils # (Auto) 0.3 K/mm3 (0.0-0.4); Eosinophils % (Auto) 5.1 % (0.0-4.3); Hematocrit 40.3 % (35.5-45.6); Hemoglobin 13.3 gm/dl (11.8-15.2); Lymphocytes # (Auto) 1.5 K/mm3 (1.2-5.4); Lymphocytes % (Auto) 22.3 % (13.4-35.0); Mean Corpuscular HGB Conc 33 % (32-34); Mean Corpuscular Volume 75 fl (84-94); Monocytes # (Auto) 0.7 K/mm3 (0.0-0.8); Monocytes % (Auto) 10.2 % (0.0-7.3); Platelet Count 184 K/mm3 (140-440); Red Blood Count 5.36 M/mm3 (3.65-5.03); Red Cell Distribution Width 16.7 % (13.2-15.2)
[2018-11-02 06:25] LABS: Calcium 8.9 mg/dL (8.4-10.2)
[2018-11-02] MEDS: SYNTHROID PO SCH ×2 (06:28)
[2018-11-02] MEDS: HumaLOG SUB-Q SCH ×2 (07:42→12:33)
[2018-11-02] MEDS ORDERED: COREG PO SCH ×2 (09:01→10:30)
[2018-11-02] MEDS ORDERED: LEXISCAN IV ONE ×2 (09:13→09:14)
[2018-11-02 09:59] VITALS: BP 135/87
[2018-11-02] MEDS ORDERED: ZESTRIL PO SCH ×2 (10:00→15:00)
[2018-11-02] MEDS ORDERED: MAG-OX PO SCH (10:00)
[2018-11-02] MEDS ORDERED: MAGNESIUM SULFATE 3 GM in NACL 0.9% 100 ML IV ONE (10:30)
[2018-11-02] MEDS: ASPIRIN PO SCH (11:15)
[2018-11-02] MEDS: PROTONIX PO SCH (11:15)
[2018-11-02] MEDS: COLACE PO SCH (11:15)
[2018-11-02] MEDS: XANAX PO PRN (11:16)
[2018-11-02] MEDS: NORCO 5/325 PO PRN (11:16)
[2018-11-02] MEDS: LASIX IV SCH (11:16)
[2018-11-02] MEDS: LOVENOX SUB-Q SCH (11:17)
--- NOTE | 2018-11-02 13:14 | Progress Note ---
Assessment and Plan S/p lexiscan MPI stress test this AM which was negative for ischemia. Currently stable cardiac status. Optimize BPs - increase lisinopril. Pt may discharge from cardiology standpoint. At discharge, recommend conversion of IV lasix to PO 40mg daily. Recommend follow up in our office with Dr. Lane within 3-5 days of hospital discharge ([phone]). The patient has been seen in conjunction with Dr. Lane who agrees with the assessment and plan of care. - Patient Problems (1) Acute HFrEF (heart failure with reduced ejection fraction) Current Visit: Yes Status: Acute (2) Cardiomyopathy Current Visit: Yes Status: Chronic (3) Right sided weakness Current Visit: Yes Status: Resolved (4) HTN (hypertension) Current Visit: Yes Status: Chronic (5) Diabetes Current Visit: Yes Status: Chronic (6) Hypothyroidism Current Visit: Yes Status: Chronic (7) VIELKA (acute kidney injury) Current Visit: Yes Status: Acute (8) Hypomagnesemia Current Visit: Yes Status: Acute (9) Sleep apnea Current Visit: Yes Status: Chronic (10) Obesity Current Visit: Yes Status: Chronic Subjective Date of service: 11/02/18 Principal diagnosis: HF Interval history: pt for stress test. no current cardiac complaints. Objective Last Vital Signs Temp 97.8 F 11/02/18 07:27 Pulse 83 11/02/18 11:18 Resp 19 11/02/18 11:00 BP 135/87 11/02/18 11:18 Pulse Ox 98 11/02/18 11:00 - Physical Examination General: No Apparent Distress HEENT: Positive: PERRL, Normocephaly, Mucus Membranes Moist Neck: Positive: neck supple, trachea midline Cardiac: Positive: Reg Rate and Rhythm, S1/S2 Lungs: Positive: Decreased Breath Sounds Neuro: Positive: Grossly Intact Abdomen: Negative: Tender Skin: Negative: Rash Musculoskeletal: No Pain Extremities: Present: +1 Edema (BLE) - Labs and Meds CBC 11/02/18 Range/Units 05:28 WBC 6.6 (4.5-11.0) K/mm3 RBC 5.36 H (3.65-5.03) M/mm3 Hgb 13.3 (11.8-15.2) gm/dl Hct 40.3 (35.5-45.6) % Plt Count 184 (140-440) K/mm3 Lymph # 1.5 (1.2-5.4) K/mm3 Mccone # 0.7 (0.0-0.8) K/mm3 Eos # 0.3 (0.0-0.4) K/mm3 Baso # 0.1 (0.0-0.1) K/mm3 Comprehensive Metabolic Panel 11/02/18 Range/Units 05:28 Sodium 133 L (137-145) mmol/L Potassium 4.9 (3.6-5.0) mmol/L Chloride 95.8 L (98-107) mmol/L Carbon Dioxide 25 (22-30) mmol/L BUN 19 (9-20) mg/dL Creatinine 1.5 (0.8-1.5) mg/dL Glucose 209 H (75-100) mg/dL Calcium 8.9 (8.4-10.2) mg/dL - Imaging and Cardiology EKG: image reviewed (sinus rhythm 92 bpm) Echo: report reviewed (EF 35-40%, LV mildly dilated, restrictive diastolic filling, RV mod dilated, mild MR, RVSP 45mmHg) - EKG Sinus rhythms and dysrhythmias: sinus rhythm
--- NOTE | 2018-11-02 15:28 | Discharge Summary ---
Providers - Providers Date of Admission: 10/28/18 19:45 Date of discharge: 11/02/18 Attending physician: SHARLA AVALOS 10/28/18 Consult to Physician [CONS] Routine Comment: Consulting Provider: PASTOR JASSO Physician Instructions: Reason For Exam: suspected storke, rt facial droop, slurred speach, 10/28/18 19:45 Consult to Dietitian/Nutrition [CONS] Routine Physician Instructions: Reason For Exam: Reason for Consult: Diet education Occupational Therapy Evaluate and Treat [CONS] Routine Comment: Reason For Exam: Neuro deficits Physical Therapy Evaluation and Treat [CONS] Routine Comment: Reason For Exam: Neuro deficits 10/30/18 12:21 Consult to Physician [CONS] Routine Comment: Consulting Provider: KAYLEEN LOPES Physician Instructions: Reason For Exam: VIELKA 11/01/18 10:46 Consult to Physician [CONS] Routine Comment: Consulting Provider: AISSATOU PEDRO Physician Instructions: Reason For Exam: new onset CHf Primary care physician: [facility], Hospitalization Condition: Stable Hospital course: 53-year-old male with history of hypertension controlled without medication, hypothyroidism, DM, anxiety presents [facility] ED with complaints of global headache, right-sided weakness and slurred speech. On examination patient is noted to have slight right facial droop. Decreased sensation to right upper extremity. Muscle strength 4/[address] on [address] upper extremity. CT a head unrevealing for hemorrhage, acute ischemia or mass. Neurology consulted, per neuro patient s eemed to have right-sided weakness from a lacunar infarct in the left hemisphere this seems to be small vessel disease due to poor control of diabetes and high blood pressure. He then c/o LE and scrotal swelling. 2d echo showed reduced EF, cardiology consulted, placed on diuretics. His scrotal swelling significantly improved scrotal ultrasound did not reveal any other pathology. Patient was counseled for diet and medication adherence, he verbalized understanding. His blood sugar significantly improved, he was clinically optimized, he was discharged home in stable condition and he will follow up with cardiology outpatient. Radiological studies: Chest x-ray Head and neck CTA Brain MRI MRA Lower extremity venous Doppler Renal ultrasound Testicular ultrasound MPI stress test 2-D echocardiogram Discharge diagnosis and management: /New onset CHFrEF with exacerbation, likely POA - EF ON 2D ECHO 30-35%, CLINICALLY was MILD VOLUME OVERLOADED WITH MILD SCROTAL SWELLING - STARTed ON LASIX, BB, CONSULTed CARDIOLOGY -Status post stress test showed no acute ischemic changes /Acute CVA : with rt sided weakness present on admission; Not a candidate for TPA as not in the window of TPA cont aspirin and statin, Neurology consulted ordered PT,OT - need home health on discharge per neuro patient seemed to have right-sided weakness from a lacunar infarct in the left hemisphere this seems to be small vessel disease due to poor control of diabetes and high blood pressure. /Type2 DM;moderate control cont SSI.ADA diet, A1c 11.7 Diabetic education /-Hypothyroidism: started on high dose synthroid, outpt endocrine followup /-Hyponatremia: Likely due to hyperglycemia, closely monitored electrolytes /-Hypertension: continue current antihypertensives, s/p permissive hypertension per stroke protocol /-Morbid obesity: BMI 43 advised weight reduction with diet and exercise regimen as tolerated and as applicable considering underlying comorbidities /-Possible WHITLEY : cpap at night if needed patient needs out pt sleep study to r/o WHITLEY upon discharge / mild Anaserca with mild Lower extremity and scrotal swelling - due to underlying CHF - lower extremity Doppler showed no underlying DVT - testicular doppler showed thickened edematous scrotum, had reduced Ef on 2d echo, placed on lasix --DVT prophylaxis : Lovenox Disposition: Home with home health Hospitalist Physical General appearance: Present: no acute distress, well-nourished, obese - EENT Eyes: Present: PERRL, EOM intact ENT: hearing intact - Neck Neck: Present: supple, normal ROM - Respiratory Respiratory effort: normal Respiratory: negative: rales, rhonchi, wheezing - Cardiovascular Rhythm: regular Heart Sounds: Present: S1 & S2 - Extremities Extremities: no ischemia, No edema - Abdominal General gastrointestinal: soft, non-tender, non-distended, normal bowel sounds, scrotal swelling - Integumentary Integumentary: Present: clear, warm - Psychiatric Psychiatric: appropriate mood/affect, cooperative - Neurologic Neurologic: CNII-XII intact, moves all extremities, clear speech Disposition: [id number]/[id number] HOME UNDER HOME HLTH Time spent for discharge: 34 minutes Core Measure Documentation - Palliative Care Palliative Care/ Comfort Measures: Not Applicable - Core Measures Any of the following diagnoses?: heart failure, stroke - Heart Failure Discharge Requirements ISABELLA/ARB for LVSD if EF <40%: Yes Beta osei at discharge: Yes - Stroke Discharge Requirements Statin for LDL = or >70 mg/dl on DC: Yes Anticoag for atrial fib/atrial flutter: Not Applicable Antithrombotic for ischemic stroke: Yes Exam - Constitutional Vitals: Temp Pulse Resp BP Pulse Ox 97.8 F 87 19 135/87 98 11/02/18 07:27 11/02/18 15:03 11/02/18 11:00 11/02/18 15:03 11/02/18 11:00 Plan Activity: advance as tolerated Weight Bearing Status: Non-Weight Bearing Diet: low fat, low salt, diabetic Special Instructions: restrict fluid intake to (1.2L daily), record daily weights, record daily BP diary, record blood sugar diary Follow up with: KJ LAWLER MD [Primary Care Provider] - 7 Days CALVIN WARREN MD [Staff Physician] - 7 Days Prescriptions: AtorvaSTATin [Lipitor] 40 mg PO QHS #30 tablet Aspirin EC 81 mg PO QDAY #30 tablet. Carvedilol [Coreg] 6.25 mg PO BID #60 tablet Furosemide [Lasix] 20 mg PO QDAY #30 tablet Metformin HCl [metFORMIN] 500 mg PO BID #60 tablet Insulin NPH/Regular [NovoLIN 70/30] 10 unit SQ BIDDIAB #10 ml Levothyroxine [Synthroid] 150 mcg PO DAILY@0600 #30 tablet Levothyroxine [Synthroid] 25 mcg PO DAILY@0600 #30 tablet Lisinopril [Zestril TAB] 10 mg PO QDAY #30 tablet Other Discharge Orders: Glucometer (Amb) Location: None Selected Glucometer supplies[Amb] Location: None Selected
--- NOTE | 2018-11-02 15:30 | Treadmill Report ---
MYOCARDIAL PERFUSION IMAGING REPORT The patient underwent myocardial perfusion imaging using [employer]. One-day protocol with resting images followed by post-stress images and post-stress gated studies were obtained. This showed a medium-sized moderate to severe fixed inferior defect. This defect was noted in both the stress and rest images. This may be secondary to underlying gut activity. However, no reversibility noted. Transient ischemic dilation ratio was found to be 0.98. Left ventricular size is markedly increased with severe diffuse hypokinesis. Ejection fraction was found to be 26%. FINAL IMPRESSION: 1. Fixed inferior wall defect, which is moderate in size and also moderate to severe in defect. May be artifactual. 2. Severe left ventricular dysfunction with dilated left ventricle, ejection fraction was calculated to be 26%. These findings may be consistent with dilated cardiomyopathy. Correlate clinically. This was found to be high risk study for future cardiac events. JOB# [id number] AMY/PERLITA
--- NOTE | 2018-11-02 22:10 | Progress Note ---
Assessment and Plan 1. Acute kidney injury: VIELKA superimposed on CKD in the setting of contrast induce nephropathy. 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 Renal US was normal. Renal function is better. Likely CKD stage 3. Monitor renal function. Avoid nephrotoxic agents. Meds dosage based on GFR. 2. FEN: Hyponatremia, improving. Replete Mg. LE edema. Advised to limit fluid intake. Monitor lytes. 3. Acute CVA: Evaluated by Neuro. 4. CHF. 5. Uncontrolled DM. Subjective Date of service: 11/02/18 Principal diagnosis: HF Interval history: Patient was seen and examined at the bedside. Doing ok. Objective - Vital Signs Vital signs: Vital Signs - 12hr 11/02/18 11/02/18 11/02/18 11:00 11:16 11:18 Pulse Rate 83 83 Pulse Rate [ 83 Apical] Pulse Rate [ 83 Left Dorsalis Pedis] Pulse Rate [ 83 Left Radial] Pulse Rate [ 83 Right Dorsalis Pedis] Pulse Rate [ 83 Right Radial] Respiratory 19 Rate Blood Pressure 135/87 135/87 O2 Sat by Pulse 98 Oximetry 11/02/18 15:03 Pulse Rate 87 Pulse Rate [ Apical] Pulse Rate [ Left Dorsalis Pedis] Pulse Rate [ Left Radial] Pulse Rate [ Right Dorsalis Pedis] Pulse Rate [ Right Radial] Respiratory Rate Blood Pressure 135/87 O2 Sat by Pulse Oximetry - General Appearance General appearance: well-developed, well-nourished, appears stated age, obese, other (no distress) EENT: ATNC, PERRL, mucous membranes moist, hearing intact, vision intact Neck: supple Respiratory: Present: Clear to Ascultation Cardiology: regular, S1S2, no murmurs Gastrointestinal: normoactive bowel sounds, no tenderness, no distended Integumentary: no rash, warm and dry Neurologic: no focal deficit, no asterixis, alert and oriented x3 Musculoskeletal: other (trace LE edema noted) - Lab 11/02/18 05:28 11/02/18 05:28 Most recent lab results Calcium 8.9 mg/dL (8.4-10.2) 11/02/18 05:28 Phosphorus 3.00 mg/dL (2.5-4.5) 10/31/18 05:18 Magnesium 1.50 mg/dL (1.7-2.3) L 11/02/18 05:28 46.2 mg/dL (0.1-20.0) H 10/30/18 Unknown 46 mmol/L 10/30/18 Unknown 93 mg/dL (5-11.8) H 10/30/18 Unknown Medications & Allergies - Medications Allergies/Adverse Reactions: Allergies No Known Allergies Allergy (Verified 04/01/14 09:04) Home Medications: Home Medications Medication Instructions Recorded Confirmed Last Taken Type Aspirin EC 81 mg PO QDAY #30 tablet. 10/31/18 Unknown Rx AtorvaSTATin [Lipitor] 40 mg PO QHS #30 tablet 10/31/18 Unknown Rx Levothyroxine [Synthroid] 25 mcg PO DAILY@0600 #30 tablet 10/31/18 Unknown Rx Levothyroxine [Synthroid] 150 mcg PO DAILY@0600 #30 tablet 10/31/18 Unknown Rx Carvedilol [Coreg] 6.25 mg PO BID #60 tablet 11/02/18 Unknown Rx Furosemide [Lasix] 20 mg PO QDAY #30 tablet 11/02/18 Unknown Rx Insulin NPH/Regular [NovoLIN 70/30] 10 unit SQ BIDDIAB #10 ml 11/02/18 Unknown Rx Lisinopril [Zestril TAB] 10 mg PO QDAY #30 tablet 11/02/18 Unknown Rx Metformin HCl [metFORMIN] 500 mg PO BID #60 tablet 11/02/18 Unknown Rx
[2018-11-03] MEDS ORDERED: BABY ASPIRIN PO SCH (10:00)
== END 2018-11-02 17:29 | disposition home health service (06) | DRG 64 ==
LOC: ED 15:57 → 4A 19:45
PROVIDERS: ADMIT Internal Medicine; ATTEND Internal Medicine
DX: I63.9 Cerebral infarction, unspecified (principal); I50.23 Acute on chronic systolic (congestive) heart failure; E87.1 Hypo-osmolality and hyponatremia; Z68.41 Body mass index [BMI] 40.0-44.9, adult; I13.0 Hypertensive heart and chronic kidney disease with heart failure and stage 1 through stage 4 chronic kidney disease, or unspecified chronic kidney disease; I42.9 Cardiomyopathy, unspecified; G81.91 Hemiplegia, unspecified affecting right dominant side; E03.9 Hypothyroidism, unspecified; R47.81 Slurred speech; F41.9 Anxiety disorder, unspecified; R29.810 Facial weakness; N14.1 Nephropathy induced by other drugs, medicaments and biological substances; T50.8X5A Adverse effect of diagnostic agents, initial encounter; Y92.89 Other specified places as the place of occurrence of the external cause; E11.21 Type 2 diabetes mellitus with diabetic nephropathy; E66.9 Obesity, unspecified; N18.9 Chronic kidney disease, unspecified; E83.42 Hypomagnesemia; G47.33 Obstructive sleep apnea (adult) (pediatric); Z79.4 Long term (current) use of insulin
CPT/HCPCS: 36415; 70496; 70498; 70544; 70551; 71045; 76770; 78452; 80048; 80053; 80061; 80307; 80320; 81001; 82550; 82553; 82570; 82805; 82962; 83036; 83735; 84100; 84156; 84300; 84439; 84443; 84484; 85025; 85610; 85670; 85730; 93005; 93010; 93017; 93306; 93970; 93975; G0378; A9270-GY; A9502; G0480; J0360; J1170; J1650; J1815; J1940; J2270; J2405; J2785; J3475; J7030; Q9967